=== PATIENT | male | born 1960 | race Caucasian/White ===

== ENCOUNTER → 2016-07-17 | Outpatient (CLI) | payer BC, MEDICARE ==
--- NOTE | 2016-07-17 08:58 | CT ---
EXAMINATION TYPE: CT abdomen pelvis w con DATE OF EXAM: 07/17/2016 8:50 AM COMPARISON: November 08, 2014 HISTORY: Lt groin pain and swelling CT DLP: 1111.1 mGycm CONTRAST: CT scan of the abdomen and pelvis is performed with Oral Contrast and with IV Contrast, patient injec zay with 100 mL of Omnipaque 300. FINDINGS: LUNG BASES-: No visible nodule. No infiltrate. There is a small sliding-type hiatal hernia. LIVER/GB: No calcified gallstones. 6 mm cyst left hepatic lobe. No solid hepatic lesions seen. Bili dorinda tree is of normal caliber. PANCREAS: No inflammation. No distinct mass. SPLEEN: No splenic enlargement. No lesion seen. ADRENALS: No nodule. No thickening. KIDNEYS/BLADDER: No hydronephrosis. No nephrolithiasis. No disctinct renal mass. Urinary bladder g rossly unremarkable. BOWEL: Normal appendix. Normal bowel caliber. No inflammation. GENITAL ORGANS: No gross abnormality. LYMPH NODES: No greater than 1cm abdominal or pelvic lymph nodes are appreciated. AORTA: No significant abnormality. OSSEOUS STRUCTURES: No significant abnormality is seen. OTHER: No significant additional abnormality is seen. IMPRESSION: 1. Small hiatal hernia. 2. Simple cyst hepatic lobe.
== END ==
LOC: RADCTMAIN 08:17
PROVIDERS: ATTEND Surgery
DX: K44.9 Diaphragmatic hernia without obstruction or gangrene (principal); K76.89 Other specified diseases of liver
CPT/HCPCS: 74177; Q9967

== ENCOUNTER 2016-08-22 09:41 | Day surgery (SDC) | payer BC, MEDICARE ==
[2016-08-20 14:42] VITALS: BMI 29.5
[2016-08-22] MEDS: LACTATED RINGERS 1,000 ML IV SCH ×2 (10:16→11:23)
[2016-08-22] MEDS ORDERED: LIDOCAINE 1% 20 ML VIAL (10MG/ML) FOR IV START SQ ONE (10:16)
[2016-08-22 10:25] VITALS: RESP 16; TEMP 97.3
[2016-08-22] MEDS ORDERED: PROPOFOL 10 MG/ML 20 ML VIAL IV ONE (11:24)
[2016-08-22] MEDS ORDERED: LACTATED RINGERS 1,000 ML IV ONE (11:43)
[2016-08-22 12:03] VITALS: BP 128/84; PULSE 86
--- NOTE | 2016-08-22 13:56 | P.PCN ---
Date of Procedure: 08/22/16 Preoperative Diagnosis: Postoperative Diagnosis: Procedure(s) Performed: Procedure: Colonoscopy and biopsy. Preoperative diagnosis: History of colitis. Postoperative diagnosis: Scattered areas of mild inflammation on the left side with occasional pseudopolyps consistent with quiescent colitis, pictures and multiple biopsies obtained. Preparation: HalfLytely prep. Sedation: Was provided by anesthesia. Brief clinical history: The patient is a 56-year-old male who was diagnosed with colitis in June 2014 and his course was that of steroid dependency and has been on Humira for control since March 2015. He was evaluated in the office last month and was scheduled for this this evaluation to assess for activity and guide therapy. On his last colonoscopy in June 2014 the terminal ileum and cecum were not involved and he had continuous and progressive involvement of the bowel distally. Procedure: With the patient on his left lateral decubitus position and after informed consent and adequate sedation, the perianal area was inspected and it did not show any fissures or fistulas. There were no masses felt on digital rectal examination. The Olympus CFQ 160L video colonoscope was then inserted in the rectum in the usual fashion and advanced to the cecum. I intubated the ileocecal valve and examined the terminal ileum. Terminal ileum, right colon and transverse colon appeared completely healed. On the left colon there were scattered areas of mild inflammation consisting of mucosal edema and erythema and minimal friability and small aphthous-like ulcerations with the intervening areas showing atrophic mucosa and occasional pseudopolyps. There was no spontaneous bleeding, strictures or other pathology. I retroflexed the endoscope in the rectum before the endoscope was withdrawn. I obtained multiple biopsies on the left side before the endoscope was withdrawn. The patient tolerated the procedure well. Plan: The patient was reassured. Will await pathology results and make further plans based on his course and biopsy results. Will keep you updated on his progress. Implants: Indications for Procedure: Operative Findings: Description of Procedure:
== END 2016-08-22 12:29 | disposition home or self-care (01) ==
LOC: ORWHC2ENDO 09:41
DX: K52.9 Noninfective gastroenteritis and colitis, unspecified (principal); K21.9 Gastro-esophageal reflux disease without esophagitis; M19.90 Unspecified osteoarthritis, unspecified site; Z88.8 Allergy status to other drugs, medicaments and biological substances; Z79.1 Long term (current) use of non-steroidal anti-inflammatories (NSAID); Z79.891 Long term (current) use of opiate analgesic; Z79.899 Other long term (current) drug therapy; Z86.73 Personal history of transient ischemic attack (TIA), and cerebral infarction without residual deficits; Z87.891 Personal history of nicotine dependence
CPT/HCPCS: 45380; 88305; J2704

== ENCOUNTER 2018-03-06 09:49 | Emergency (ER) | payer BC, MEDICARE ==
[2018-03-06 10:00] VITALS: TEMP 98.2
[2018-03-06] MEDS ORDERED: ONDANSETRON 4 MG/2 ML VIAL IVP STA (10:20)
[2018-03-06] MEDS ORDERED: SODIUM CHLORIDE 0.9% 2,000 ML IV STA (10:20)
[2018-03-06] MEDS ORDERED: PANTOPRAZOLE 40 MG/10 ML VIAL IVP STA (10:20)
[2018-03-06] MEDS ORDERED: MORPHINE SULFATE 4 MG/ML SYRINGE IV STA (10:20)
--- NOTE | 2018-03-06 10:29 | ED ---
Abdominal Pain HPI - General Chief Complaint: Abdominal Pain Stated Complaint: Abd Pain Time Seen by Provider: 03/06/18 10:06 Source: patient, RN notes reviewed Mode of arrival: ambulatory Limitations: no limitations - History of Present Illness Initial Comments: 57-year-old male sent emergency Department chief complaint of abdominal pain. He's had progressive worsening abdominal pain. Patient did see his GI doctor in which they initially thought it was just related to his also colitis but states symptoms have worsened now. Patient states that he noticed some coffee- ground emesis today. Patient denies any fevers or chills. Patient states that the pain is in his mid abdomen and sharp in nature. Patient also states he has known hernia in the left lower. Patient denies any melena or hematochezia. Patient denies fever, chills. Patient did have a few episodes of vomiting today. Patient denies chest pain or shortness of breath. - Related Data Home Medications Medication Instructions Recorded Confirmed Ranitidine HCl [Zantac] 150 mg PO BID 07/05/14 03/06/18 Adalimumab [Humira Pen] 40 mg SQ TU 08/20/16 03/06/18 Ibuprofen 800 mg PO TID 08/20/16 03/06/18 Methocarbamol [Robaxin-750] 750 mg PO BID PRN 08/20/16 03/06/18 Ascorbic Acid/Multivit-Min 1,000 mg PO DAILY 03/06/18 03/06/18 [Emergen-C 1,000 mg Packet] Atorvastatin [Lipitor] 40 mg PO DAILY 03/06/18 03/06/18 Dicyclomine [Bentyl] 10 mg PO TID 03/06/18 03/06/18 Lisinopril [Zestril] 10 mg PO BID 03/06/18 03/06/18 Loperamide [Imodium] 2 mg PO QID PRN 03/06/18 03/06/18 traMADol HCL [Ultram] 50 mg PO QID PRN 03/06/18 03/06/18 Previous Rx's Medication Instructions Recorded Omeprazole 40 mg PO DAILY #14 capsule. 03/06/18 Ondansetron Odt [Zofran Odt] 4 mg PO Q8HR PRN #10 tab 03/06/18 Penicillin V Potassium [Pen Vee K] 500 mg PO QID #40 tablet 03/06/18 Allergies Allergy/AdvReac Type Severity Reaction Status Date / Time methiolate Allergy Swelling Uncoded 03/06/18 10:00 STYROFOAM Allergy Swelling Uncoded 03/06/18 10:00 Review of Systems ROS Statement: Those systems with pertinent positive or pertinent negative responses have been documented in the HPI. ROS Other: All systems not noted in ROS Statement are negative. Past Medical History Past Medical History: CVA/TIA, GERD/Reflux, Osteoarthritis (OA) Additional Past Medical History / Comment(s): freq diarrhea, colitis,TIA 2012, MURMUR,ULCER,states "feels like my heart flutters sometimes" History of Any Multi-Drug Resistant Organisms: None Reported Past Surgical History: Back Surgery, Hernia Repair Additional Past Surgical History / Comment(s): back sx X4, lt inguinal hernia X 3 Past Anesthesia/Blood Transfusion Reactions: Family History of Problems w/ Anesthesia Additional Past Anesthesia/Blood Transfusion Reaction / Comment(s): sister has difficulty waking up from anesthesia Past Psychological History: No Psychological Hx Reported Smoking Status: Former smoker Past Alcohol Use History: None Reported Past Drug Use History: None Reported - Past Family History Father Family Medical History: Dementia Additional Family Medical History / Comment(s): VALVE REPLACENT, BACK SX HIP SX AFTER MOTOR CYCLE ACCIDENT.DEPRESSION. Mother Family Medical History: Hypertension, Osteoarthritis (OA) Additional Family Medical History / Comment(s): HIT BY A SEMI TRUCK CRUSHING LEG INJURY. General Exam Limitations: no limitations General appearance: alert, in no apparent distress Head exam: Present: atraumatic, normocephalic, normal inspection ENT exam: Present: mucous membranes moist. Absent: normal oropharynx (Dental fracture) Neck exam: Present: normal inspection. Absent: tenderness, meningismus, lymphadenopathy Respiratory exam: Present: normal lung sounds bilaterally. Absent: respiratory distress, wheezes, rales, rhonchi, stridor Cardiovascular Exam: Present: regular rate, normal rhythm, normal heart sounds. Absent: systolic murmur, diastolic murmur, rubs, gallop, clicks GI/Abdominal exam: Present: soft, tenderness, normal bowel sounds. Absent: distended, guarding, rebound, rigid Back exam: Absent: CVA tenderness (R), CVA tenderness (L) Skin exam: Present: warm, dry, intact, normal color. Absent: rash Course Vital Signs 03/06/18 09:57 Temperature 98.2 F Pulse Rate 85 Respiratory 20 Rate Blood Pressure 146/89 O2 Sat by Pulse 99 Oximetry Medical Decision Making - Medical Decision Making 57-year-old male presents emergency department for abdominal pain. Patient has enteritis had CT labwork essentially unremarkable. Patient will be given antiacid as he has underlying gastritis from overuse appropriately discuss discontinue use of ibuprofen this time patient will follow-up with GI as she seen in the past. Patient also given antibiotics for dental infection. - Lab Data Result diagrams: 03/06/18 10:25 03/06/18 10:25 Lab Results 03/06/18 03/06/18 03/06/18 Range/Units 10:25 10:25 10:25 WBC 13.0 H (3.8-10.6) k/uL RBC 4.71 (4.30-5.90) m/uL Hgb 14.8 (13.0-17.5) gm/dL Hct 45.3 (39.0-53.0) % MCV 96.0 (80.0-100.0) fL MCH 31.4 (25.0-35.0) pg MCHC 32.7 (31.0-37.0) g/dL RDW 12.4 (11.5-15.5) % Plt Count 333 (150-450) k/uL Neutrophils % 72 % Lymphocytes % 19 % Monocytes % 6 % Eosinophils % 1 % Basophils % 0 % Neutrophils # 9.4 H (1.3-7.7) k/uL Lymphocytes # 2.4 (1.0-4.8) k/uL Monocytes # 0.8 (0-1.0) k/uL Eosinophils # 0.1 (0-0.7) k/uL Basophils # 0.0 (0-0.2) k/uL PT (9.0-12.0) sec INR (<1.2) APTT (22.0-30.0) sec Sodium 136 L (137-145) mmol/L Potassium 4.7 (3.5-5.1) mmol/L Chloride 104 (98-107) mmol/L Carbon Dioxide 26 (22-30) mmol/L Anion Gap 6 mmol/L BUN 18 (9-20) mg/dL Creatinine 0.88 (0.66-1.25) mg/dL Est GFR (CKD-EPI)AfAm >90 (>60 ml/min/1.73 sqM) Est GFR (CKD-EPI)NonAf >90 (>60 ml/min/1.73 sqM) Glucose 111 H (74-99) mg/dL Plasma Lactic Acid [place] 1.0 (0.7-2.0) mmol/L Calcium 9.3 (8.4-10.2) mg/dL Total Bilirubin 0.6 (0.2-1.3) mg/dL AST 29 (17-59) U/L ALT 31 (21-72) U/L Alkaline Phosphatase 66 (38-126) U/L Total Protein 7.3 (6.3-8.2) g/dL Albumin 4.0 (3.5-5.0) g/dL Amylase 61 (30-110) U/L Lipase 44 (23-300) U/L Urine Color Urine Appearance (Clear) Urine pH (5.0-8.0) Ur Specific [place] (1.001-1.035) Urine Protein (Negative) Urine Glucose (UA) (Negative) Urine Ketones (Negative) Urine Blood (Negative) Urine Nitrite (Negative) Urine Bilirubin (Negative) Urine Urobilinogen (<2.0) mg/dL Ur Leukocyte Esterase (Negative) 03/06/18 03/06/18 Range/Units 10:25 10:25 WBC (3.8-10.6) k/uL RBC (4.30-5.90) m/uL Hgb (13.0-17.5) gm/dL Hct (39.0-53.0) % MCV (80.0-100.0) fL MCH (25.0-35.0) pg MCHC (31.0-37.0) g/dL RDW (11.5-15.5) % Plt Count (150-450) k/uL Neutrophils % % Lymphocytes % % Monocytes % % Eosinophils % % Basophils % % Neutrophils # (1.3-7.7) k/uL Lymphocytes # (1.0-4.8) k/uL Monocytes # (0-1.0) k/uL Eosinophils # (0-0.7) k/uL Basophils # (0-0.2) k/uL PT 9.5 (9.0-12.0) sec INR 0.9 (<1.2) APTT 22.3 (22.0-30.0) sec Sodium (137-145) mmol/L Potassium (3.5-5.1) mmol/L Chloride (98-107) mmol/L Carbon Dioxide (22-30) mmol/L Anion Gap mmol/L BUN (9-20) mg/dL Creatinine (0.66-1.25) mg/dL Est GFR (CKD-EPI)AfAm (>60 ml/min/1.73 sqM) Est GFR (CKD-EPI)NonAf (>60 ml/min/1.73 sqM) Glucose (74-99) mg/dL Plasma Lactic Acid [place] (0.7-2.0) mmol/L Calcium (8.4-10.2) mg/dL Total Bilirubin (0.2-1.3) mg/dL AST (17-59) U/L ALT (21-72) U/L Alkaline Phosphatase (38-126) U/L Total Protein (6.3-8.2) g/dL Albumin (3.5-5.0) g/dL Amylase (30-110) U/L Lipase (23-300) U/L Urine Color Yellow Urine Appearance Clear (Clear) Urine pH 6.0 (5.0-8.0) Ur Specific [place] 1.011 (1.001-1.035) Urine Protein Negative (Negative) Urine Glucose (UA) Negative (Negative) Urine Ketones Negative (Negative) Urine Blood Negative (Negative) Urine Nitrite Negative (Negative) Urine Bilirubin Negative (Negative) Urine Urobilinogen <2.0 (<2.0) mg/dL Ur Leukocyte Esterase Negative (Negative) Disposition Clinical Impression: Gastritis, Enteritis, Nausea & vomiting, Dental infection Disposition: HOME SELF-CARE Condition: Stable Instructions: Gastritis (ED), Diet for Stomach Ulcers and Gastritis (ED) Additional Instructions: Please return to the Emergency Department if symptoms worsen or any other concerns. Prescriptions: Omeprazole 40 mg PO DAILY #14 capsule. Ondansetron Odt [Zofran Odt] 4 mg PO Q8HR PRN #10 tab PRN Reason: Nausea Penicillin V Potassium [Pen Vee K] 500 mg PO QID #40 tablet Is patient prescribed a controlled substance at d/c from ED?: No Referrals: Bailey Noel MD [Primary Care Provider] - 1-2 days Time of Disposition: 12:29
[2018-03-06 10:50] LABS: Appearance,Urine Clear (Clear); Bilirubin,Urine Negative (Negative); Blood,Urine Negative (Negative); Color,Urine Yellow; Glucose,Urine (UA) Negative (Negative); Ketones,Urine Negative (Negative); Leukocyte Esterase,Urine Negative (Negative); Nitrite,Urine Negative (Negative); Protein,Urine Negative (Negative); Specific Gravity,Urine 1.011 (1.001-1.035); Urobilinogen,Urine <2.0 mg/dL (<2.0)
[2018-03-06 10:51] LABS: Basophils % (A) 0 %; Eosinophils # (A) 0.1 k/uL (0-0.7); Eosinophils % (A) 1 %; HCT 45.3 % (39.0-53.0); HGB 14.8 gm/dL (13.0-17.5); Lymphocytes # (A) 2.4 k/uL (1.0-4.8); Lymphocytes % (A) 19 %; MCH 31.4 pg (25.0-35.0); MCHC 32.7 g/dL (31.0-37.0); Mean Platelet Volume 6.4; Monocytes # (A) 0.8 k/uL (0-1.0); Monocytes % (A) 6 %; Neutrophils # (A) 9.4 k/uL (1.3-7.7); Neutrophils % (A) 72 %; Platelet Count 333 k/uL (150-450); RBC 4.71 m/uL (4.30-5.90); RDW 12.4 % (11.5-15.5)
[2018-03-06 11:00] LABS: ALT 31 U/L (21-72); AST 29 U/L (17-59); Alkaline Phosphatase 66 U/L (38-126); Amylase 61 U/L (30-110); Anion Gap 6 mmol/L; Blood Urea Nitrogen 18 mg/dL (9-20); Calcium 9.3 mg/dL (8.4-10.2); Carbon Dioxide 26 mmol/L (22-30); Chloride 104 mmol/L (98-107); Glucose 111 mg/dL (74-99); INR 0.9 (<1.2); Lipase 44 U/L (23-300); Partial Thromboplastin Time 22.3 sec (22.0-30.0); Potassium 4.7 mmol/L (3.5-5.1); Prothrombin Time 9.5 sec (9.0-12.0); Sodium 136 mmol/L (137-145); Total Bilirubin 0.6 mg/dL (0.2-1.3); Total Protein 7.3 g/dL (6.3-8.2)
--- NOTE | 2018-03-06 11:49 | CT ---
EXAMINATION TYPE: CT abdomen pelvis w con DATE OF EXAM: 03/06/2018 COMPARISON: 07/17/2016 HISTORY: Upper abdominal pain, history of ulcerative colitis CT DLP: 910.9 mGycm CONTRAST: CT scan of the abdomen and pelvis is performed without Oral Contrast and with IV Contrast, patient in jected with 100 mL of Isovue 300. FINDINGS: LUNG BASES-: No visible nodule. No infiltrate. LIVER/GB: No calcified gallstones. 4 mm cyst left hepatic lobe. Biliary tree is of normal caliber. PANCREAS: No inflammation. No distinct mass. SPLEEN: No splenic enlargement. No lesion seen. ADRENALS: No nodule. No thickening. KIDNEYS/BLADDER: No hydronephrosis. No nephrolithiasis. No distinct renal mass. Urinary bladder g rossly unremarkable. BOWEL: Normal appendix. Mild wall thickening and distention of jejunal loops may reflect enteritis. P oorly distended left hemicolon. No evidence of perforation or abscess. Small sliding-type hiatal dinora ia noted. GENITAL ORGANS: No gross abnormality. LYMPH NODES: No greater than 1cm abdominal or pelvic lymph nodes are appreciated. AORTA: No significant abnormality. OSSEOUS STRUCTURES: No significant abnormality is seen. OTHER: No significant additional abnormality is seen. IMPRESSION: 1. Correlate for small bowel enteritis.
[2018-03-06 12:48] VITALS: BP 140/72; PULSE 70; RESP 18
== END 2018-03-06 12:49 | disposition home or self-care (01) ==
LOC: EC 09:49
DX: K29.70 Gastritis, unspecified, without bleeding (principal); K52.9 Noninfective gastroenteritis and colitis, unspecified; K04.7 Periapical abscess without sinus; K21.9 Gastro-esophageal reflux disease without esophagitis; M19.90 Unspecified osteoarthritis, unspecified site; Z86.73 Personal history of transient ischemic attack (TIA), and cerebral infarction without residual deficits; Z87.891 Personal history of nicotine dependence; Z79.1 Long term (current) use of non-steroidal anti-inflammatories (NSAID); Z79.899 Other long term (current) drug therapy; Z88.8 Allergy status to other drugs, medicaments and biological substances; Z91.09 Other allergy status, other than to drugs and biological substances
CPT/HCPCS: 36415; 80053; 82150; 83605; 83690; 85025; 85610; 85730; 81003; 74177; 99284; 96374; 96375 ×2; 96361 ×2; J2270; J2405; C9113; Q9967

== ENCOUNTER → 2018-11-20 | Outpatient (CLI) | payer BC, MEDICARE ==
--- NOTE | 2018-11-20 11:02 | US ---
EXAMINATION TYPE: US thyroid st tissue head/neck DATE OF EXAM: 11/20/2018 COMPARISON: NONE CLINICAL HISTORY: R22.1 swelling of head and neck. Neck swelling, difficulty breathing and swallowing x 3 to 4 months GLAND SIZE: Right Lobe: 5.6 x 1.3 x 1.9 cm Overall Parenchyma: heterogenous Left Lobe: 5.8 x 1.5 x 1.7 cm Overall Parenchyma: heterogeneous Isthmus Thickness: 0.5 cm NODULES RIGHT: # of nodules measured on right: 0 LEFT: # of nodules measured on left: 0 ISTHMUS: # of nodules measured in the isthmus: 0 Bilateral neck scanned, no evidence of lymphadenopathy. Enlarged heterogeneous thyroid without any definite nodules seen at this time. IMPRESSION: Enlarged and slightly heterogenous thyroid with no discrete nodule. Thyroiditis should be considered. Correlate with laboratory values.
== END ==
LOC: RADUSWWP 09:56
PROVIDERS: ATTEND Family Medicine
DX: E04.9 Nontoxic goiter, unspecified (principal)
CPT/HCPCS: 76536

== ENCOUNTER 2018-12-03 09:55 | Day surgery (SDC) | payer BC, MEDICARE ==
[2018-12-01 14:58] VITALS: BMI 27.5
[~2018-12-03 09:55] MED LIST: LACTATED RINGERS 1,000 ML IV SCH; LIDOCAINE 1% 20 ML VIAL (10MG/ML) FOR IV START INTRADERMA PRN
[2018-12-03 10:21] VITALS: TEMP 97.8
[2018-12-03 10:34] LABS: Glucose,Whole Blood 117 mg/dL (75-99)
[2018-12-03] MEDS ORDERED: PROPOFOL 10 MG/ML 20 ML VIAL IV ONE (10:53)
[2018-12-03] MEDS ORDERED: LIDOCAINE 1% INJ 10MG/ML (20 ML MDV) ONE (10:53)
[2018-12-03 11:30] VITALS: RESP 18
--- NOTE | 2018-12-03 11:33 | P.PCN ---
Date of Procedure: 12/03/18 Description of Procedure: BRIEF HISTORY: Patient is a 58-year-old pleasant male scheduled for an elective colonoscopy as a part of surveillance of ulcerative colitis. Patient was diagnosed in the and has a long-standing history of ulcerative colitis of this will colon. Currently on treatment with Humira since 2016 is also on dulls occult therapy. He is been tapering off steroids and is currently on 20 mg of prednisone daily. Last colonoscopy was over 08/2016. PROCEDURE PERFORMED: Colonoscopy. PREOPERATIVE DIAGNOSIS: []. ESTIMATED BLOOD LOSS: Minimal. IV sedation per Anesthesia. PROCEDURE: After informed consent was obtained, the patient, was brought into the endoscopy unit. IV sedation was administered by Anesthesia under continuous monitoring. Digital rectal examination was normal. Initially the Olympus CF-190 flexible video colonoscope was then inserted in the rectum, gradually advanced into the cecum without any difficulty. Careful examination was performed as the scope was gradually being withdrawn. Ileocecal valve and the appendiceal orifice were visualized and appeared normal. The terminal ileum was intubated and appeared normal. Prep was excellent. Mucosa of the cecum, ascending colon, transverse colon, appeared grossly normal. Mucosa of the descending colon, sigmoid colon, and rectum appeared mottled with some scattered erythema and loss of haustrations consistent with history of ulcerative colitis. Biopsies were taken every 10 cm from 80 cm from the anal verge. Retroflexion was performed in the rectum and no lesions were seen, moderate internal. The patient tolerated the procedure well. IMPRESSION: Some mottling and erythema in the left colon suggestive of mildly active ulcerative colitis with biopsies taken every 10 cm starting at 80 cm from the anal verge. Moderate internal hemorrhoids. RECOMMENDATIONS: Findings of this examination were discussed with the patient and his . Continue current medical management ulcerative colitis. Await pathology from biopsies. Follow up in the gastroenterology clinic as previously scheduled. Repeat colonoscopy in 2 years as previously scheduled.
[2018-12-03 11:46] VITALS: BP 167/89; PULSE 78
== END 2018-12-03 12:07 | disposition home or self-care (01) ==
LOC: ORWHC2ENDO 09:55
PROVIDERS: ATTEND Internal Medicine
DX: K51.90 Ulcerative colitis, unspecified, without complications (principal); K64.8 Other hemorrhoids; Z79.891 Long term (current) use of opiate analgesic; Z79.52 Long term (current) use of systemic steroids; Z79.899 Other long term (current) drug therapy; Z87.891 Personal history of nicotine dependence; I10 Essential (primary) hypertension; R01.1 Cardiac murmur, unspecified; R00.2 Palpitations; Z86.73 Personal history of transient ischemic attack (TIA), and cerebral infarction without residual deficits; M19.90 Unspecified osteoarthritis, unspecified site; K21.9 Gastro-esophageal reflux disease without esophagitis; Z88.8 Allergy status to other drugs, medicaments and biological substances; Z91.09 Other allergy status, other than to drugs and biological substances
CPT/HCPCS: 88305; 88313; 45380; J2001; J2704

== ENCOUNTER → 2019-04-23 | Outpatient (CLI) | payer BC, MEDICARE ==
[2019-04-26 14:43] LABS: Beef IgE <0.10 kU/L (<0.10); Beef IgE Class CLASS 0; Pork IgE Class CLASS 0; Yeast Bakers/Brew IgE <0.10 kU/L (<0.10); Yeast Bakers/Brew IgE Class CLASS 0
[2019-04-26 14:44] LABS: Avocado Class CLASS 0; Banana IgE Class CLASS 0; Chicken IgE Class CLASS 0; Cow's Milk IgE Class CLASS 0; Egg White IgE <0.10 kU/L (<0.10); Hazelnut IgE <0.10 kU/L (<0.10); Hazelnut IgE Class CLASS 0; Kiwi IgE <0.10 kU/L (<0.10); Kiwi IgE Class CLASS 0; Peanut IgE <0.10 kU/L (<0.10); Potato IgE <0.10 kU/L (<0.10); Potato IgE Class CLASS 0; Soybean IgE <0.10 kU/L (<0.10)
== END | disposition home or self-care (01) ==
LOC: LABWHC1 11:44
PROVIDERS: ATTEND Otolaryngology
DX: L50.0 Allergic urticaria (principal)
CPT/HCPCS: 36415; 86003

== ENCOUNTER → 2019-07-29 | Outpatient (CLI) | payer BC, MEDICARE ==
--- NOTE | 2019-07-29 13:15 | XR ---
EXAMINATION TYPE: XR chest 2V DATE OF EXAM: 07/29/2019 COMPARISON: NONE HISTORY: Left-sided chest pain with cough. TECHNIQUE: Frontal and lateral views of the chest are obtained. FINDINGS: There is chronic parenchymal changes bilaterally without suspicious focal air space opacit y, pleural effusion, or pneumothorax seen. The cardiac silhouette size is within normal limits. Th e osseous structures are intact. IMPRESSION: Chronic changes without acute pulmonary process.
== END | disposition home or self-care (01) ==
LOC: RADXRYALE 11:35
PROVIDERS: ATTEND Physician Assistant Medical
DX: R07.89 Other chest pain (principal)
CPT/HCPCS: 71046

== ENCOUNTER → 2020-01-04 | Outpatient (CLI) | payer BC, MEDICARE ==
--- NOTE | 2020-01-04 12:59 | CT ---
EXAMINATION TYPE: CT brain wo con DATE OF EXAM: 01/04/2020 HISTORY: Dizziness and giddiness. CT DLP: 1219 mGycm. Automated Exposure Control for Dose Reduction was Utilized. TECHNIQUE: CT scan of the head is performed without contrast. COMPARISON: None. FINDINGS: There is no acute intracranial hemorrhage or midline shift identified. There is diffuse v entricular and sulcal prominence consistent with diffuse age-related cerebral atrophy. There is low- attenuation in the periventricular white matter consistent with chronic small vessel ischemic change. Moderate mucosal thickening involving ethmoid sinuses bilaterally. Mild mucosal thickening inferio r bilateral frontal sinuses in the anterior left sphenoid sinus. [id number] mucosal thickening left greater than right maxillary sinuses. Globes are intact bilaterally. No suspicious opacification mastoid air cells. IMPRESSION: No acute intracranial hemorrhage or midline shift. There is mild diffuse age-related ce rebral atrophy and chronic small vessel ischemic change noted. Chronic paranasal sinus disease noted .
--- NOTE | 2020-01-10 08:18 | HM ---
Holter monitor summary: Date of Holter: 01/04/2020 Patient wore a 24-hour Holter monitor starting 01/04/2020 for a total of 24 hours. Patient had an average heart rate of 79 bpm. Patient's minimum heart rate was 51 bpm at 7:06 AM. Patient's maximum heart rate was 131 bpm at 11:47 AM. Patient had rare PVCs. No significant atrial fibrillation, ventricular tachycardia or bradycardias noted. Interpretation: 1. Normal sinus rhythm throughout 24-hour Holter monitor 2. Rare PACs. No pauses greater than 2.5 seconds 3. Rare PVCs noted 4. Patient markers are associated with sinus rhythm 5. No significant atrial fibrillation, SVT or tachyarrhythmias MTDD
== END | disposition home or self-care (01) ==
LOC: RADECHMAIN 12:10
PROVIDERS: ATTEND Family Medicine
DX: G31.1 Senile degeneration of brain, not elsewhere classified (principal); I67.82 Cerebral ischemia; R42 Dizziness and giddiness; R55 Syncope and collapse
CPT/HCPCS: 70450; 93225; 93226

== ENCOUNTER 2020-02-23 13:56 | Emergency (ER) | payer BC, MEDICARE ==
[2020-02-23 14:01] VITALS: TEMP 98.2
[2020-02-23] MEDS ORDERED: DIPH,PERTUS(ACELL)TETVAC-LF 0.5 ML VIAL IM ONE (15:12)
[2020-02-23] MEDS ORDERED: TOPICAL SKIN ADHESIVE 1 EACH AMP TOPICAL ONE (15:14)
--- NOTE | 2020-02-23 15:14 | ED ---
General Adult HPI - General Chief complaint: Fall Stated complaint: Fall Time Seen by Provider: 02/23/20 14:57 Source: patient Mode of arrival: wheelchair Limitations: no limitations - History of Present Illness Initial comments: Dictation was produced using Beaming dictation software. please excuse any grammatical, word or spelling errors. This patient was cared for during a federal and state declared state of emergency secondary to Covid 19 Chief Complaint: 59-year-old male with past medical history of remote illicit drug use, GERD, osteoporosis arthritis and CVA presents after fall. 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 Patient states the ladder fell out from under him. He states he fell backwards landing onto his lower back straight to the ground. States that he fell from a height of approximately 8 feet. Patient does not recall if he struck his head or loss consciousness. Does complain of back pain, neck pain and left lower extremity pain. Denies any radiation of symptoms. States his pain is severe and worse with movement. Patient denies taking any anticoagulation medications. He does not have a headache. The ROS documented in this emergency department record has been reviewed and confirmed by me. Those systems with pertinent positive or negative responses have been documented in the HPI. All other systems are other negative and/or noncontributory. PHYSICAL EXAM: General Impression: Alert and oriented x3, not in acute distress HEENT: Normocephalic atraumatic, extra-ocular movements intact, pupils equal and reactive to light bilaterally, mucous membranes moist. Cardiovascular: Heart regular rate and rhythm Chest: Able to complete full sentences, no retractions, no tachypnea Abdomen: abdomen soft, non-tender, non-distended, no organomegaly Musculoskeletal: Pulses present and equal in all extremities, no peripheral edema, no cervical spine tenderness, abrasions to the left lower extremity at th e anterior tibial area, left anterior knee and left lateral thigh Motor: no focal deficits noted Neurological: CN II-XII grossly intact, no focal motor or sensory deficits noted Skin: Intact with no visualized rashes Psych: Normal affect and mood ED course: 59-year-old male presents with back pain, neck pain and left lower extremity pain after fall from ladder 8 feet. Vital signs upon arrival are within acceptable limits. Patient was offered analgesic medications however he refused. He states that this is because he is weaning himself off narcotics.Laboratory evaluation is unremarkable. Potassium 5.2 likely some slight hemolysis. Chest x-ray unremarkable. Pelvis x-rays unremarkable. The x-ray is negative. Tib-fib x-ray unremarkable. CT head and C-spine is unremarkable. CT neck shows no acute processes. Patient reevaluated bedside found with stable medical condition. Tetanus was updated. Patient notified of the results of his blood work and imaging studies. Patient is agreeable to Toradol. Patient clear for discharge. Return parameters discussed. EKG interpretation: Ventricular rate 88, sinus bradycardia, GA interval 162, QRS 102, QTC 420. No GA prolongation, no QTC prolongation, no ST or T-wave changes noted. EKG compared to 11/08/2014 showing no changes. Overall, this EKG is unremarkable - Related Data Home Medications Medication Instructions Recorded Confirmed Ranitidine HCl [Zantac] 150 mg PO BID 07/05/14 12/03/18 Adalimumab [Humira Pen] 40 mg SQ TU 08/20/16 12/03/18 Ibuprofen 800 mg PO TID 08/20/16 12/03/18 Ascorbic Acid/Multivit-Min 1,000 mg PO DAILY 03/06/18 12/03/18 [Emergen-C 1,000 mg Packet] Atorvastatin [Lipitor] 40 mg PO DAILY 03/06/18 12/03/18 Dicyclomine [Bentyl] 10 mg PO TID 03/06/18 12/03/18 Lisinopril [Zestril] 10 mg PO BID 03/06/18 12/03/18 Loperamide [Imodium] 2 mg PO DAILY 03/06/18 12/03/18 traMADol HCL [Ultram] 50 mg PO QID PRN 03/06/18 12/03/18 Nystatin 100,000 Unit/ml Susp 1 ml PO QID 12/01/18 12/03/18 [Mycostatin Oral Susp] methocarbamoL [Robaxin] 500 mg PO DAILY 12/01/18 12/03/18 predniSONE 10 mg PO BID 12/01/18 12/03/18 Allergies Allergy/AdvReac Type Severity Reaction Status Date / Time methiolate Allergy Swelling Uncoded 02/23/20 14:01 STYROFOAM Allergy Swelling Uncoded 02/23/20 14:01 Review of Systems ROS Statement: Those systems with pertinent positive or pertinent negative responses have been documented in the HPI. ROS Other: All systems not noted in ROS Statement are negative. Past Medical History Past Medical History: CVA/TIA, GERD/Reflux, Osteoarthritis (OA) Additional Past Medical History / Comment(s): freq diarrhea, colitis,TIA 2012,MURMUR,ULCER,states "feels like my heart flutters sometimes" History of Any Multi-Drug Resistant Organisms: None Reported Past Surgical History: Back Surgery, Hernia Repair Additional Past Surgical History / Comment(s): back sx X4, lt inguinal hernia X 3 Past Anesthesia/Blood Transfusion Reactions: Family History of Problems w/ Anesthesia Additional Past Anesthesia/Blood Transfusion Reaction / Comment(s): sister has difficulty waking up from anesthesia Past Psychological History: No Psychological Hx Reported Smoking Status: Never smoker Past Alcohol Use History: None Reported Past Drug Use History: Marijuana - Past Family History Sister(s) Family Medical History: Cancer Additional Family Medical History / Comment(s): BREAST CANCER Father Family Medical History: Dementia Additional Family Medical History / Comment(s): VALVE REPLACEMENT, BACK SX HIP SX AFTER MOTOR CYCLE ACCIDENT.DEPRESSION. Mother Family Medical History: Hypertension, Osteoarthritis (OA) Additional Family Medical History / Comment(s): HIT BY A SEMI TRUCK CRUSHING LEG INJURY. General Exam Limitations: no limitations Course Vital Signs 02/23/20 13:57 Temperature 98.2 F Pulse Rate 69 Respiratory 18 Rate Blood Pressure 163/94 O2 Sat by Pulse 98 Oximetry Medical Decision Making - Lab Data Result diagrams: 02/23/20 15:30 02/23/20 15:30 Lab Results 02/23/20 02/23/20 Range/Units 15:30 15:30 WBC 10.2 (3.8-10.6) k/uL RBC 4.76 (4.30-5.90) m/uL Hgb 15.3 (13.0-17.5) gm/dL Hct 45.3 (39.0-53.0) % MCV 95.1 (80.0-100.0) fL MCH 32.1 (25.0-35.0) pg MCHC 33.7 (31.0-37.0) g/dL RDW 12.1 (11.5-15.5) % Plt Count 364 (150-450) k/uL MPV 6.6 Neutrophils % 55 % Lymphocytes % 30 % Monocytes % 8 % Eosinophils % 2 % Basophils % 3 % Neutrophils # 5.6 (1.3-7.7) k/uL Lymphocytes # 3.0 (1.0-4.8) k/uL Monocytes # 0.8 (0-1.0) k/uL Eosinophils # 0.2 (0-0.7) k/uL Basophils # 0.3 H (0-0.2) k/uL Sodium 139 (137-145) mmol/L Potassium 5.2 H (3.5-5.1) mmol/L Chloride 105 (98-107) mmol/L Carbon Dioxide 29 (22-30) mmol/L Anion Gap 5 mmol/L BUN 20 (9-20) mg/dL Creatinine 0.97 (0.66-1.25) mg/dL Est GFR (CKD-EPI)AfAm >90 (>60 ml/min/1.73 sqM) Est GFR (CKD-EPI)NonAf 87 (>60 ml/min/1.73 sqM) Glucose 95 (74-99) mg/dL Calcium 9.6 (8.4-10.2) mg/dL Total Bilirubin 0.5 (0.2-1.3) mg/dL AST 37 (17-59) U/L ALT 33 (4-49) U/L Alkaline Phosphatase 74 (38-126) U/L Total Protein 7.8 (6.3-8.2) g/dL Albumin 4.5 (3.5-5.0) g/dL Disposition Clinical Impression: Fall Disposition: HOME SELF-CARE Condition: Fair Instructions (If sedation given, give patient instructions): Fall Prevention for Older Adults (ED), Low Back Strain (ED) Is patient prescribed a controlled substance at d/c from ED?: No Referrals: Skip Stratton DO [Primary Care Provider] - 1-2 days Time of Disposition: 17:14
[2020-02-23 15:49] LABS: Basophils # (A) 0.3 k/uL (0-0.2); Basophils % (A) 3 %; Eosinophils # (A) 0.2 k/uL (0-0.7); Eosinophils % (A) 2 %; HCT 45.3 % (39.0-53.0); HGB 15.3 gm/dL (13.0-17.5); Lymphocytes % (A) 30 %; MCH 32.1 pg (25.0-35.0); MCHC 33.7 g/dL (31.0-37.0); MCV 95.1 fL (80.0-100.0); Mean Platelet Volume 6.6; Monocytes # (A) 0.8 k/uL (0-1.0); Monocytes % (A) 8 %; Neutrophils # (A) 5.6 k/uL (1.3-7.7); Neutrophils % (A) 55 %; Platelet Count 364 k/uL (150-450); RBC 4.76 m/uL (4.30-5.90); RDW 12.1 % (11.5-15.5); WBC 10.2 k/uL (3.8-10.6)
--- NOTE | 2020-02-23 15:58 | XR ---
EXAMINATION TYPE: XR chest 2V DATE OF EXAM: 02/23/2020 COMPARISON: Prior chest x-ray 07/29/2019 HISTORY: Trauma, pain TECHNIQUE: Frontal and lateral views of the chest are obtained on 3 images. FINDINGS: There is no focal air space opacity, pleural effusion, or pneumothorax seen. The cardiac silhouette size is within normal limits. There are prominent lung volumes possibly indicating underly ing COPD. The osseous structures are intact. IMPRESSION: No acute cardiopulmonary process.
--- NOTE | 2020-02-23 16:11 | XR ---
EXAMINATION TYPE: XR pelvis AP view DATE OF EXAM: 02/23/2020 COMPARISON: The HISTORY: Fall, pain TECHNIQUE: AP pelvis FINDINGS: Femoral heads articulate with the acetabulum. Symphysis pubis and sacroiliac joints are nor mal. Normal bowel gas is present. No acute fractures or dislocations are evident. Joints appear mickie l IMPRESSION: 1. No acute osseous abnormality.
--- NOTE | 2020-02-23 16:15 | XR ---
EXAMINATION TYPE: XR knee complete LT DATE OF EXAM: 02/23/2020 COMPARISON: 03/04/2020 HISTORY: Fall, pain TECHNIQUE: Three-view left knee FINDINGS: Joint spaces preserved. No acute fracture or dislocation is evident. No joint effusion is e vident. Follow-up exams can be performed 7-10 days from acute trauma for continued pain IMPRESSION: 1. Normal three-view left knee
--- NOTE | 2020-02-23 16:16 | XR ---
EXAMINATION TYPE: XR tibia fibula LT DATE OF EXAM: 02/23/2020 COMPARISON: None HISTORY: Fall, pain fall from 8 foot ladder TECHNIQUE: 2 view left tibia and fibula FINDINGS: No acute fractures or dislocations are evident. Joint spaces appear preserved. No radiopaqu e foreign bodies are evident. Soft tissues appear normal. Follow-up exams can be performed 7-10 days from acute trauma for continued pain. IMPRESSION: 1. Left tibia and fibula.
[2020-02-23 16:19] LABS: ALT 33 U/L (4-49); AST 37 U/L (17-59); African American GFR (CKD) >90 (>60 ml/min/1.73 sqM); Albumin 4.5 g/dL (3.5-5.0); Alkaline Phosphatase 74 U/L (38-126); Anion Gap 5 mmol/L; Blood Urea Nitrogen 20 mg/dL (9-20); Calcium 9.6 mg/dL (8.4-10.2); Carbon Dioxide 29 mmol/L (22-30); Chloride 105 mmol/L (98-107); Glucose 95 mg/dL (74-99); Non-African American GFR(CKD) 87 (>60 ml/min/1.73 sqM); Potassium 5.2 mmol/L (3.5-5.1); Sodium 139 mmol/L (137-145); Total Bilirubin 0.5 mg/dL (0.2-1.3); Total Protein 7.8 g/dL (6.3-8.2)
--- NOTE | 2020-02-23 16:44 | CT ---
EXAMINATION TYPE: CT brain sydnie blair con DATE OF EXAM: 02/23/2020 COMPARISON: 01/04/2020 HISTORY: low back pain post 8 ft fall from ladder CT DLP: 1496.5 mGycm, Automated exposure control for dose reduction was used. CONTRAST: None CT of the brain is performed utilizing 3 mm thick sections through the posterior fossa and 3 mm thick sections through the remaining calvarium. Study is performed within 24 hours of arrival to the hospital. No abnormal hyperdensity is present to suggest an acute intracranial hemorrhage. No mass lesion is evident. No acute infarcts are evident. Ventricles and sulci are appropriate for the patient age. Mucosal thickening is within the left maxillary sinus. A left septal spur is present. Ethmoid mucosal thickenings present bilaterally. Small amount of mucosal thickening or retention cysts within the sp henoid sinus. Mastoid air cells are clear. IMPRESSIONS: 1. No acute intracranial process. 2. Chronic sinusitis CT cervical spine. COMPARISON: None CT of the cervical spine is performed in the axial plane at 2 mm thick sections. Reconstructed image s in the coronal, and sagittal plane are reviewed on the computer. No acute fractures are evident. Vertebral body alignment is normal. Disc space narrowing is present diffusely. Vertebral body heights are preserved. No spinal canal stenosis is evident. Uncovertebral joint hypertrophy is contributing to moderate left and severe right foraminal stenosis C3-4. Moderate foraminal narrowing is present C4-5 bilaterally and C5-6 bilaterally and mild to moder ate left foraminal stenosis is present at C6-7. IMPRESSIONS: 1. Degenerative disc changes. 2. Uncovertebral joint hypertrophy contributing to foraminal narrowing. 3. No acute fractures evident
--- NOTE | 2020-02-23 16:47 | CT ---
EXAMINATION TYPE: CT lumbar spine wo con DATE OF EXAM: 02/23/2020 COMPARISON: None HISTORY: low back pain post 8 ft fall from ladder CT DLP: 1160.6 mGycm CONTRAST: None TECHNIQUE: CT of the lumbar spine is performed on a spiral scan at 3 mm thick sections. Reconstructed images are performed in the coronal and sagittal planes. FINDINGS: There is a retrolisthesis of L4 posterior L5. Vertebral body alignment is otherwise unremarkable. [place] tebral body heights are preserved. There is disc height loss at L4-5. Some posterior disc space narro wing is present through the remaining lumbar spine. No acute fractures are evident. No spinal canal stenosis is present. Broad-based disc bulge is present L3-4 with mild anterior thecal sac compression. IMPRESSION: 1. Degenerative disc changes. 2. Retrolisthesis of L4 posterior L5. 3. No acute osseous abnormality
[2020-02-23] MEDS ORDERED: KETOROLAC 15 MG/ML 1 ML VIAL IM STA (17:13)
[2020-02-23 17:33] VITALS: BP 154/97; PULSE 57; RESP 16
== END 2020-02-23 17:36 | disposition home or self-care (01) ==
LOC: EC 13:56
DX: S80.812A Abrasion, left lower leg, initial encounter (principal); K21.9 Gastro-esophageal reflux disease without esophagitis; M19.90 Unspecified osteoarthritis, unspecified site; R00.1 Bradycardia, unspecified; M54.9 Dorsalgia, unspecified; M54.2 Cervicalgia; Z79.51 Long term (current) use of inhaled steroids; Z79.899 Other long term (current) drug therapy; Z79.1 Long term (current) use of non-steroidal anti-inflammatories (NSAID); Z88.3 Allergy status to other anti-infective agents; Z91.048 Other nonmedicinal substance allergy status; Z86.73 Personal history of transient ischemic attack (TIA), and cerebral infarction without residual deficits; Z23 Encounter for immunization; W11.XXXA Fall on and from ladder, initial encounter; Y93.39 Activity, other involving climbing, rappelling and jumping off; Y92.009 Unspecified place in unspecified non-institutional (private) residence as the place of occurrence of the external cause
CPT/HCPCS: 36415; 93005; 80053; 85025; 72170; 73590; 73562; 71046; 72125; 72131; 70450; 90715; 99284; 90471; 96372; J1885

== ENCOUNTER → 2020-04-12 | Outpatient (CLI) | payer BC, MEDICARE ==
--- NOTE | 2020-04-12 10:50 | MR ---
EXAMINATION TYPE: MR iac wo/w con DATE OF EXAM: 04/12/2020 COMPARISON: CT brain February 23, 2020 HISTORY: Acoustic nerve disorder, vertigo, black out TECHNIQUE: Multiplanar, multisequence images of the brain and brainstem is performed without and with IV contras t, utilizing 10 mL intravenous Gadavist . Acoustic nerve disorder protocol. FINDINGS: Diffusion weighted images demonstrate no evidence of a recent infarct or other diffusion ab normality. There is no extra-axial fluid collection or significant white matter signal abnormality. Mild ventricular and sulcal prominence. Midline structures demonstrate normal morphology. The craniocervical junction appears within normal limits. Normal vascular flow voids. The dural venous sinuses appear patent. [id number] mucosal thickening involving the maxillary sinuses bilaterally left greater than right is redemonstrated. The re is mild to moderate mucosal thickening involving ethmoid sinuses bilaterally redemonstrated along with inferior aspect of bilateral frontal sinuses with some patchy fluid. There is posterior mucous r etention cyst or polyp in the dominant sphenoid sinus. Globes are intact bilaterally. No suspicious fluid signal in the mastoid air cells bilaterally. Vestibulocochlear complexes are symm etric and felt within normal limits. No suspicious enhancing cerebellopontine angle mass is identifie d bilaterally. IMPRESSION: No suspicious finding is seen to account for patient's symptoms of vertigo. Chronic paran sue sinus disease redemonstrated. Mild diffuse age-related cerebral atrophy redemonstrated.
== END | disposition home or self-care (01) ==
LOC: RADMRIMAIN 07:59
PROVIDERS: ATTEND Otolaryngology
DX: G31.1 Senile degeneration of brain, not elsewhere classified (principal); J32.9 Chronic sinusitis, unspecified
CPT/HCPCS: 70553; A9585

== ENCOUNTER → 2020-04-12 | Outpatient (CLI) | payer BC, MEDICARE ==
--- NOTE | 2020-04-12 15:39 | US ---
EXAMINATION TYPE: US carotid duplex BILAT DATE OF EXAM: 04/12/2020 COMPARISON: MRI head today CLINICAL HISTORY: R42 vertigo; syncopal episodes and cardiac murmur per patient EXAM MEASUREMENTS: RIGHT: Peak Systolic Velocity (PSV) cm/sec ----- Right CCA: 47.6 ----- Right ICA: 86.4 ----- Right ECA: 143.1 ICA/CCA ratio: 1.8 RIGHT: End Diastole cm/sec ----- Right CCA: 11.9 ----- Right ICA: 33.6 ----- Right ECA: 12.3 LEFT: Peak Systolic Velocity (PSV) cm/sec ----- Left CCA: 52.0 ----- Left ICA: 93.5 ----- Left ECA: 133.4 ICA/CCA ratio: 1.8 LEFT: End Diastole cm/sec ----- Left CCA: 13.6 ----- Left ICA: 38.5 ----- Left ECA: 0.0 VERTEBRALS (direction of flow): Right Vertebral: Antegrade Left Vertebral: Antegrade Rhythm: Normal Mild to Moderate mixed wall plaque seen in bilateral CCA, ECA, and ICA with abnormal elevated PSV see n in bilateral ECA. IMPRESSION: 1. Atheromatous plaquing without significant flow-limiting stenosis. Criteria for Assigning % of Stenosis / Diameter reduction (Estimation based on the indirect measurements of the internal carotid artery velocities (ICA PSV). 1. Normal (no stenosis)=ICA PSV < 125 cm/s: ratio < 2.0: ICA EDV<40 cm/s. 2. Less than 50% stenosis=ICA PSV < 125 cm/s: ratio < 2.0: ICA EDV<40 cm/s. 3. 50 to 69% stenosis=ICA PSV of 125 to 230 cm/s: ration 2.0 ? 4.0: ICA EDV 40-100 cm/s. 4. Greater than 70% stenosis to near occlusion= ICA PSV > 230 cm/s: ratio > 4.0: ICA EDV > 100 cm/s. 5. Near occlusion= ICA PSV velocities may be low or undetectable: variable ratio and ICA EDV. 6. Total occlusion=unable to detect flow.
== END | disposition home or self-care (01) ==
LOC: RADUSWWP 09:11
PROVIDERS: ATTEND Otolaryngology
DX: I65.23 Occlusion and stenosis of bilateral carotid arteries (principal)
CPT/HCPCS: 93880

== ENCOUNTER → 2020-04-18 | Outpatient (CLI) | payer BC, MEDICARE ==
[2020-04-18 11:27] LABS: HCT 47.4 % (39.0-53.0); HGB 15.7 gm/dL (13.0-17.5); MCH 31.6 pg (25.0-35.0); MCHC 33.1 g/dL (31.0-37.0); MCV 95.6 fL (80.0-100.0); Mean Platelet Volume 6.2; Platelet Count 405 k/uL (150-450); RBC 4.96 m/uL (4.30-5.90); RDW 12.6 % (11.5-15.5); WBC 13.7 k/uL (3.8-10.6)
[2020-04-18 12:14] LABS: ALT 23 U/L (4-49); AST 22 U/L (17-59); African American GFR (CKD) >90 (>60 ml/min/1.73 sqM); Albumin 4.7 g/dL (3.5-5.0); Alkaline Phosphatase 96 U/L (38-126); Anion Gap 10 mmol/L; Blood Urea Nitrogen 20 mg/dL (9-20); C Reactive Protein <5.0 mg/L (<10.0); Calcium 9.9 mg/dL (8.4-10.2); Carbon Dioxide 32 mmol/L (22-30); Chloride 96 mmol/L (98-107); Glucose 98 mg/dL (74-99); Non-African American GFR(CKD) >90 (>60 ml/min/1.73 sqM); Potassium 4.4 mmol/L (3.5-5.1); Sodium 138 mmol/L (137-145); Total Bilirubin 0.6 mg/dL (0.2-1.3); Total Protein 8.3 g/dL (6.3-8.2)
[2020-04-18 13:31] LABS: Erythrocyte Sedimentation Rate 8 mm/hr (0-15)
--- NOTE | 2020-04-18 15:02 | CT ---
EXAMINATION TYPE: CT abdomen pelvis wo/w con DATE OF EXAM: 04/18/2020 COMPARISON: 03/06/2018 INDICATION: unspecified abdominal pain DLP: 1389.8 mGycm, Automated exposure control for dose reduction was used. CONTRAST: 100 mL of Isovue 300. Study performed with Oral Contrast TECHNIQUE: Axial images were obtained from above the diaphragm to the pubic rami in the axial plane a t 5 mm thick sections. Reconstructed images are reviewed on the computer in the coronal plane. FINDINGS: Limited CT sections are obtained the lung bases. The lung bases are clear. Hiatal hernia is present CT ABDOMEN: Liver: Normal Spleen: Normal Pancreas: Normal Adrenal glands: The adrenal glands are normal. Gallbladder: Normal Kidneys: No masses are evident. No hydronephrosis is present. No cysts are present. Delayed images were obtained through the kidneys, which remain unremarkable. No renal stones on precontrast imaging . Aorta: Vascular calcification is within the aorta. Inferior vena cava: Normal. CT PELVIS: Some mild wall thickening within the nondistended sigmoid colon. Consider colitis. Remaining Loops of bowel within the abdomen and pelvis are normal. There are loops of bowel which are incompletely distended or lack oral contrast limiting their evaluation. Appendix: Not identified. No dilated tubular structures or inflammatory changes are evident. Urinary bladder: Normal. Genitourinary structures: Prostate is slightly prominent. Osseous structures: No suspicious lytic or sclerotic lesions. IMPRESSIONS: 1. Mild colitis of the sigmoid colon is not excluded. Correlate with symptoms.
== END | disposition home or self-care (01) ==
LOC: RADCTMAIN 10:46
PROVIDERS: ATTEND Internal Medicine Gastroenterology
DX: R10.9 Unspecified abdominal pain (principal); K51.011 Ulcerative (chronic) pancolitis with rectal bleeding
CPT/HCPCS: 80053; 85652; 85027; 86140; 74178; Q9967

== ENCOUNTER → 2020-05-15 | Outpatient (CLI) | payer BC, MEDICARE ==
--- NOTE | 2020-06-16 11:24 | EM ---
EVENT MONITOR A 14-day event monitor. Rhythm strips were reviewed. The patient had predominant sinus rhythm. There was one episode when he had a rhythm strip of sinus with some PACs. There is no evidence of atrial fibrillation. There is no evidence of any ventricular arrhythmias. This is an unremarkable 14-day event monitor. This is a 30-day event monitor. Rhythm strips were reviewed. There is evidence of predominant sinus rhythm with PACs. There were 2 rhythm strips reviewed, strip #10 and strip #11 both of these were on 05/20/2020 at 11:40 p.m. 11:41 p.m. and both of these suggest atrial fibrillation at a rate of about 140, 130 beats per minute and then the remaining strips are all sinus. FINAL IMPRESSION: This is a 30-day event monitor. Rhythm strips were reviewed. There are 2 strips that suggest atrial fibrillation, all the rest of them were sinus with some PACs. MMODL / IJN: [id number] /
== END | disposition home or self-care (01) ==
LOC: RADECHMAIN 11:52
PROVIDERS: ATTEND Psychiatry & Neurology Neurology
DX: I49.1 Atrial premature depolarization (principal)
CPT/HCPCS: 93270

== ENCOUNTER → 2021-01-17 | Outpatient (CLI) | payer MEDICARE ==
--- NOTE | 2021-01-17 14:00 | XR ---
EXAMINATION TYPE: XR chest 2V DATE OF EXAM: 01/17/2021 COMPARISON: 02/23/2020 HISTORY: 60-year-old male abnormal blood work, TB TECHNIQUE: Frontal and lateral views FINDINGS: Heart normal size. Aorta and pulmonary vasculature within normal limits. There is hyperinflation with flattening of the hemidiaphragms. No consolidation or pleural effusion. IMPRESSION: COPD but otherwise without acute cardiopulmonary process. No obvious signs of active TB or cavitary l esions identified. If more detailed parenchymal assessment is desired, CT can be considered.
[2021-01-17 18:28] LABS: African American GFR (CKD) 114.1 (60.0-200.0); Albumin 3.7 g/dL (3.8-4.9); Albumin/Globulin Ratio 1.42 (1.60-3.17); Anion Gap 11.5 mmol/L (4.00-12.00); BUN/Creat Ratio 20.25 Ratio (12.00-20.00); Blood Urea Nitrogen 16.2 mg/dL (9.0-27.0); C Reactive Protein 0.5 mg/dL (0.00-0.80); Calcium 9.4 mg/dL (8.7-10.3); Carbon Dioxide 26.5 mmol/L (21.6-31.8); Globulin 2.6 g/dL (1.6-3.3); Non-African American GFR(CKD) 98.5 (60.0-200.0); Potassium 4.4 mmol/L (3.5-5.5); Total Bilirubin 0.5 mg/dL (0.30-1.20); Total Protein 6.3 g/dL (6.2-8.2)
[2021-01-17 21:11] LABS: Basophils # (A) 0.02 X 10*3/uL (0.00-0.10); Basophils % (A) 0.2 %; Eosinophils # (A) 0 X 10*3/uL (0.04-0.35); Eosinophils % (A) 0 %; HCT 43.3 % (39.6-50.0); HGB 13.6 g/dL (13.0-17.0); Lymphocytes # (A) 1.23 X 10*3/uL (0.90-5.00); Lymphocytes % (A) 11.3 %; MCH 32.1 pg (27.0-32.0); MCHC 31.4 g/dL (32.0-37.0); MCV 102.1 fL (80.0-97.0); Mean Platelet Volume 8.5 fL (9.5-12.2); Monocytes # (A) 0.61 X 10*3/uL (0.20-1.00); Monocytes % (A) 5.6 %; Neutrophils # (A) 8.96 X 10*3/uL (1.80-7.70); Neutrophils % (A) 82.2 %; Platelet Count 396 X 10*3/uL (140-440); RBC 4.24 X 10*6/uL (4.40-5.60); RDW 14.6 % (11.5-14.5)
[2021-01-17 22:33] LABS: Erythrocyte Sedimentation Rate 9 mm/Hr (0-20)
== END | disposition home or self-care (01) ==
LOC: LABWHC1 10:23
PROVIDERS: ATTEND Internal Medicine Infectious Disease
DX: A15.9 Respiratory tuberculosis unspecified (principal)
CPT/HCPCS: 36415; 71046; 80053; 84145; 85025; 85652; 86140

== ENCOUNTER → 2021-02-20 | Outpatient (CLI) | payer MEDICARE ==
[2021-02-20 19:43] LABS: ALT 18 U/L (10-49); AST 14 U/L (14-35); Albumin 3.7 g/dL (3.8-4.9); Albumin/Globulin Ratio 1.27 (1.60-3.17); Alkaline Phosphatase 78 U/L (41-126); Bilirubin, Conjugated <0.20 mg/dL (0.20-0.40); Globulin 2.9 g/dL (1.6-3.3); Total Bilirubin <0.20 mg/dL (0.30-1.20); Total Protein 6.6 g/dL (6.2-8.2)
== END | disposition home or self-care (01) ==
LOC: LABWHC1 10:10
PROVIDERS: ATTEND Internal Medicine Infectious Disease
DX: K92.2 Gastrointestinal hemorrhage, unspecified (principal); A15.9 Respiratory tuberculosis unspecified; R10.9 Unspecified abdominal pain; R65.10 Systemic inflammatory response syndrome (SIRS) of non-infectious origin without acute organ dysfunction
CPT/HCPCS: 36415; 80076

== ENCOUNTER → 2021-03-07 | Outpatient (CLI) | payer BC, MEDICARE ==
--- NOTE | 2021-03-07 19:20 | XR ---
EXAMINATION TYPE: XR chest 2V DATE OF EXAM: 03/07/2021 COMPARISON: 01/17/2021 HISTORY: 60-year-old male R05.9, cough TECHNIQUE: Frontal and lateral views FINDINGS: Heart normal size. Aorta within normal limits. Hyperinflation. Some strandy atelectasis in the lower lungs. No consolidation or pleural effusion. IMPRESSION: COPD. No acute process seen.
[2021-03-07 19:42] LABS: ALT 18 U/L (10-49); AST 13 U/L (14-35); African American GFR (CKD) 112.8 (60.0-200.0); Albumin/Globulin Ratio 1.49 (1.60-3.17); Alkaline Phosphatase 75 U/L (41-126); BUN/Creat Ratio 9.51 Ratio (12.00-20.00); Bilirubin, Conjugated <0.20 mg/dL (0.20-0.40); Blood Urea Nitrogen 7.8 mg/dL (9.0-27.0); Calcium 9.5 mg/dL (8.7-10.3); Carbon Dioxide 26.6 mmol/L (20.0-27.5); Chloride 103 mmol/L (96-109); Globulin 2.7 g/dL (1.6-3.3); Glucose 100 mg/dL (70-110); Non-African American GFR(CKD) 97.3 (60.0-200.0); Potassium 4.2 mmol/L (3.5-5.5); Sodium 142 mmol/L (135-145); Total Bilirubin <0.20 mg/dL (0.30-1.20); Total Protein 6.7 g/dL (6.2-8.2)
== END | disposition home or self-care (01) ==
LOC: LABWHC1 12:41
PROVIDERS: ATTEND Internal Medicine Infectious Disease
DX: A15.9 Respiratory tuberculosis unspecified (principal); R05.9 Cough, unspecified
CPT/HCPCS: 36415; 71046; 80048; 80076

== ENCOUNTER → 2021-03-07 | Outpatient (CLI) | payer BC, MEDICARE ==
--- NOTE | 2021-03-07 19:27 | US ---
EXAMINATION TYPE: US groin LT DATE OF EXAM: 03/07/2021 COMPARISON: NONE CLINICAL HISTORY: 60-year-old male R22.9 SWELLING,MASS AND LUMP, R10.2 PELVIC AND PERINEAL PAIN. TECHNIQUE: Targeted ultrasound examination of the left inguinal region for assessment of hernia. FINDINGS: Hospital Chief Financial Officer notes: Left groin assessed for hernia. Shadowing area appears to be mesh related to previ ous hernia repair. There are no areas of abnormal bulging with valsalva at this area. No hernia or ma ss seen on today's ultrasound. IMPRESSION: Some shadowing seen in the left inguinal region likely relates to prior mesh repair. No discrete ingu inal hernia identified with Valsalva maneuvers.
== END | disposition home or self-care (01) ==
LOC: RADUSWWP 13:16
PROVIDERS: ATTEND Family Medicine
DX: R22.9 Localized swelling, mass and lump, unspecified (principal); R10.2 Pelvic and perineal pain

== ENCOUNTER 2021-03-27 09:18 | Inpatient (IN) | payer BC, MEDICARE ==
--- NOTE | 2021-03-27 09:42 | XR ---
EXAMINATION TYPE: XR chest 1V portable DATE OF EXAM: 03/27/2021 COMPARISON: Chest x-ray March 07, 2011. HISTORY: Difficulty in breathing. TECHNIQUE: Single frontal view of the chest is obtained. FINDINGS: There is underlying mild chronic emphysematous change. Presents with new peripheral increa sed opacities bilaterally. No pleural effusion or pneumothorax seen. The cardiac silhouette size rem ains upper limits of normal. The osseous structures are intact. IMPRESSION: New Bilateral peripheral multifocal increased opacities consistent with covid-19 infecti on thought present. Correlate clinically.
[2021-03-27] MEDS ORDERED: DEXAMETHASONE SOD PHOSPHATE 10 MG/ML 1 ML VIAL IV STA (09:52)
[2021-03-27 10:02] LABS: ALT 18 U/L (4-49); African American GFR (CKD) >90 (>60 ml/min/1.73 sqM); Albumin 3.3 g/dL (3.5-5.0); Anion Gap 6 mmol/L; Blood Urea Nitrogen 9 mg/dL (9-20); Carbon Dioxide 27 mmol/L (22-30); Chloride 105 mmol/L (98-107); Glucose 110 mg/dL (74-99); Non-African American GFR(CKD) >90 (>60 ml/min/1.73 sqM); Sodium 138 mmol/L (137-145); Total Bilirubin 0.7 mg/dL (0.2-1.3); Total Protein 6.7 g/dL (6.3-8.2)
[2021-03-27 10:03] LABS: AST 23 U/L (17-59); Potassium 4.5 mmol/L (3.5-5.1)
[2021-03-27 10:04] LABS: Alkaline Phosphatase 59 U/L (38-126)
--- NOTE | 2021-03-27 10:13 | ED ---
General Adult HPI - General Chief complaint: Shortness of Breath Stated complaint: RADHA, + tb Time Seen by Provider: 03/27/21 09:19 Source: patient, EMS, RN notes reviewed, old records reviewed Mode of arrival: EMS Limitations: no limitations - History of Present Illness Initial comments: 61-year-old male transported by paramedics for dyspnea, cough, and concern for pneumothorax. Patient recently diagnosed with tuberculosis and is currently receiving treatment although he is uncertain what medication he is on. He is a poor historian regarding his medical history. He states he's had at least a week if not longer of cough however this has worsened. Apparently the an outpatient chest x-ray revealed a pneumothorax on the left and the patient was sent to the hospital for evaluation. He denies fever. He reports significant cough which is predominantly dry. - Related Data Home Medications Medication Instructions Recorded Confirmed Ibuprofen 800 mg PO TID 08/20/16 03/27/21 Ascorbic Acid/Multivit-Min 1,000 mg PO DAILY 03/06/18 03/27/21 [Emergen-C 1,000 mg Packet] Atorvastatin [Lipitor] 40 mg PO DAILY 03/06/18 03/27/21 Lisinopril [Zestril] 10 mg PO DAILY PRN 03/06/18 03/27/21 traMADol HCL [Ultram] 50 mg PO QID PRN 03/06/18 03/27/21 methocarbamoL [Robaxin] 500 mg PO HS 12/01/18 03/27/21 Aspirin EC [Ecotrin Low Dose] 81 mg PO DIRECTED 03/27/21 03/27/21 Famotidine [Pepcid] 20 mg PO BID 03/27/21 03/27/21 Fluticasone Nasal [place] [Flonase 2 spray EA NOSTRIL DAILY 03/27/21 03/27/21 Nasal [place]] Hyoscyamine Er 0.375mg 0.375 mg PO Q12H 03/27/21 03/27/21 Metoprolol Tartrate [Lopressor] 25 mg PO BID 03/27/21 03/27/21 rifAMPin [Rifampin] 600 mg PO DAILY 03/27/21 03/27/21 Allergies Allergy/AdvReac Type Severity Reaction Status Date / Time methiolate Allergy Swelling Uncoded 03/27/21 10:35 STYROFOAM Allergy Swelling Uncoded 03/27/21 10:35 Review of Systems ROS Statement: Those systems with pertinent positive or pertinent negative responses have been documented in the HPI. ROS Other: All systems not noted in ROS Statement are negative. Past Medical History Past Medical History: CVA/TIA, GERD/Reflux, Osteoarthritis (OA) Additional Past Medical History / Comment(s): freq diarrhea, colitis,TIA 201 2,MURMUR,ULCER,states "feels like my heart flutters sometimes" History of Any Multi-Drug Resistant Organisms: None Reported Past Surgical History: Back Surgery, Hernia Repair Additional Past Surgical History / Comment(s): back sx X4, lt inguinal hernia X 3, latent Tb Past Anesthesia/Blood Transfusion Reactions: Family History of Problems w/ Anesthesia Additional Past Anesthesia/Blood Transfusion Reaction / Comment(s): sister has difficulty waking up from anesthesia Past Psychological History: No Psychological Hx Reported Smoking Status: Never smoker Past Alcohol Use History: None Reported Past Drug Use History: Marijuana - Past Family History Sister(s) Family Medical History: Cancer Additional Family Medical History / Comment(s): BREAST CANCER Father Family Medical History: Dementia Additional Family Medical History / Comment(s): VALVE REPLACEMENT, BACK SX HIP SX AFTER MOTOR CYCLE ACCIDENT.DEPRESSION. Mother Family Medical History: Hypertension, Osteoarthritis (OA) Additional Family Medical History / Comment(s): HIT BY A SEMI TRUCK CRUSHING LEG INJURY. General Exam Limitations: no limitations General appearance: alert, in distress Head exam: Present: atraumatic, normocephalic Eye exam: Present: normal appearance, PERRL ENT exam: Present: mucous membranes dry Neck exam: Present: normal inspection. Absent: tenderness, meningismus Respiratory exam: Present: respiratory distress, wheezes, rhonchi Cardiovascular Exam: Present: regular rate, normal rhythm GI/Abdominal exam: Present: soft. Absent: distended, tenderness, guarding Extremities exam: Present: normal inspection, normal capillary refill. Absent: pedal edema Neurological exam: Present: alert, oriented X3, CN II-XII intact. Absent: motor sensory deficit Psychiatric exam: Present: normal affect, normal mood Skin exam: Present: warm, dry, intact. Absent: cyanosis, diaphoretic Course Vital Signs 03/27/21 03/27/21 09:35 10:38 Temperature 98.4 F Pulse Rate 76 73 Respiratory 18 20 Rate Blood Pressure 137/91 131/79 O2 Sat by Pulse 99 99 Oximetry Medical Decision Making - Medical Decision Making 61-year-old male who admits that in for dyspnea and EMS reported a pneumothorax on outpatient x-ray. I did repeat an x-ray which is negative for pneumothorax, showed an interstitial possible pneumonia. CT was ordered which was negative for pulmonary and wasn't, negative for pneumonia, negative for pneumothorax. The patient does have some emphysema in moderate respiratory distress. He is requiring supplemental oxygen. There is a history of tuberculosis in this patient he is uncertain of the medications he is on. He will be kept in isolation and infectious disease will be placed on consult as well as pulmonology. Case discussed with Dr. kwok who will admit. - Lab Data Result diagrams: 03/27/21 09:38 03/27/21 09:38 Lab Results 03/27/21 03/27/21 03/27/21 Range/Units 09:38 09:38 09:38 WBC 14.8 H (3.8-10.6) k/uL RBC 4.29 L (4.30-5.90) m/uL Hgb 14.0 (13.0-17.5) gm/dL Hct 42.8 (39.0-53.0) % MCV 99.8 (80.0-100.0) fL MCH 32.6 (25.0-35.0) pg MCHC 32.7 (31.0-37.0) g/dL RDW 14.6 (11.5-15.5) % Plt Count 476 H (150-450) k/uL MPV 7.2 Neutrophils % 74 % Lymphocytes % 14 % Monocytes % 10 % Eosinophils % 1 % Basophils % 0 % Neutrophils # 10.9 H (1.3-7.7) k/uL Lymphocytes # 2.0 (1.0-4.8) k/uL Monocytes # 1.5 H (0-1.0) k/uL Eosinophils # 0.1 (0-0.7) k/uL Basophils # 0.1 (0-0.2) k/uL Macrocytosis Slight PT 10.0 (9.0-12.0) sec INR 0.9 (<1.2) APTT 24.3 (22.0-30.0) sec Sodium 138 (137-145) mmol/L Potassium 4.5 (3.5-5.1) mmol/L Chloride 105 (98-107) mmol/L Carbon Dioxide 27 (22-30) mmol/L Anion Gap 6 mmol/L BUN 9 (9-20) mg/dL Creatinine 0.66 (0.66-1.25) mg/dL Est GFR (CKD-EPI)AfAm >90 (>60 ml/min/1.73 sqM) Est GFR (CKD-EPI)NonAf >90 (>60 ml/min/1.73 sqM) Glucose 110 H (74-99) mg/dL Calcium 9.0 (8.4-10.2) mg/dL Total Bilirubin 0.7 (0.2-1.3) mg/dL AST 23 (17-59) U/L ALT 18 (4-49) U/L Alkaline Phosphatase 59 (38-126) U/L Total Protein 6.7 (6.3-8.2) g/dL Albumin 3.3 L (3.5-5.0) g/dL Coronavirus (PCR) (Not Detectd) 03/27/21 Range/Units 09:56 WBC (3.8-10.6) k/uL RBC (4.30-5.90) m/uL Hgb (13.0-17.5) gm/dL Hct (39.0-53.0) % MCV (80.0-100.0) fL MCH (25.0-35.0) pg MCHC (31.0-37.0) g/dL RDW (11.5-15.5) % Plt Count (150-450) k/uL MPV Neutrophils % % Lymphocytes % % Monocytes % % Eosinophils % % Basophils % % Neutrophils # (1.3-7.7) k/uL Lymphocytes # (1.0-4.8) k/uL Monocytes # (0-1.0) k/uL Eosinophils # (0-0.7) k/uL Basophils # (0-0.2) k/uL Macrocytosis PT (9.0-12.0) sec INR (<1.2) APTT (22.0-30.0) sec Sodium (137-145) mmol/L Potassium (3.5-5.1) mmol/L Chloride (98-107) mmol/L Carbon Dioxide (22-30) mmol/L Anion Gap mmol/L BUN (9-20) mg/dL Creatinine (0.66-1.25) mg/dL Est GFR (CKD-EPI)AfAm (>60 ml/min/1.73 sqM) Est GFR (CKD-EPI)NonAf (>60 ml/min/1.73 sqM) Glucose (74-99) mg/dL Calcium (8.4-10.2) mg/dL Total Bilirubin (0.2-1.3) mg/dL AST (17-59) U/L ALT (4-49) U/L Alkaline Phosphatase (38-126) U/L Total Protein (6.3-8.2) g/dL Albumin (3.5-5.0) g/dL Coronavirus (PCR) Not Detected (Not Detectd) Disposition Clinical Impression: Acute exacerbation of chronic obstructive pulmonary disease Disposition: ADMITTED IP TO THIS [facility] Condition: Stable Is patient prescribed a controlled substance at d/c from ED?: No Referrals: Skip Stratton DO [Primary Care Provider] - 1-2 days Decision to Admit Reason: Admit from EC Decision Date: 03/27/21 Decision Time: 13:07
[2021-03-27 10:18] LABS: Basophils # (A) 0.1 k/uL (0-0.2); Basophils % (A) 0 %; Eosinophils # (A) 0.1 k/uL (0-0.7); Eosinophils % (A) 1 %; HCT 42.8 % (39.0-53.0); Lymphocytes % (A) 14 %; MCH 32.6 pg (25.0-35.0); MCHC 32.7 g/dL (31.0-37.0); MCV 99.8 fL (80.0-100.0); Macrocytosis Slight; Mean Platelet Volume 7.2; Monocytes # (A) 1.5 k/uL (0-1.0); Monocytes % (A) 10 %; Neutrophils # (A) 10.9 k/uL (1.3-7.7); Neutrophils % (A) 74 %; Platelet Count 476 k/uL (150-450); RBC 4.29 m/uL (4.30-5.90); RDW 14.6 % (11.5-15.5); WBC 14.8 k/uL (3.8-10.6)
[2021-03-27 10:25] LABS: INR 0.9 (<1.2); Partial Thromboplastin Time 24.3 sec (22.0-30.0)
[2021-03-27] MEDS ORDERED: ALBUTEROL HFA INHALER INHALATION STA (11:00)
--- NOTE | 2021-03-27 12:26 | CT ---
EXAMINATION TYPE: CT angio chest DATE OF EXAM: 03/27/2021 COMPARISON: Chest x-ray earlier today HISTORY: RADHA, +TB CT DLP: 341.1 mGycm. Automated Exposure Control for Dose Reduction was Utilized. CONTRAST: CTA scan of the thorax is performed without and with IV Contrast, patient injected with 100 ml mL of Isovue 370, pulmonary embolism protocol. MIP Images are created on CT scanner and reviewed. FINDINGS: LUNGS: Moderate underlying emphysematous change greatest in the upper lungs is present. No suspicious focal consolidation or groundglass opacity. Some respiratory motion artifact and rotation is present . No pleural effusion or pneumothorax seen bilaterally. MEDIASTINUM: There is satisfactory enhancement of the pulmonary artery and its branches, there is no CT evidence for pulmonary embolism. Prominent right and left pulmonary arteries suggests underlying p ulmonary artery hypertension. There are no greater than 1 cm hilar or mediastinal lymph nodes. No cardiomegaly or pericardial effusion is seen. OTHER: No additional significant abnormality is seen. IMPRESSION: 1. No CT evidence for acute pulmonary embolism. 2. Suggestion of faint peripheral groundglass opacities on chest x-ray do not reproduce on CT study. Moderate emphysematous change without acute pulmonary process on CT.
[2021-03-27] MEDS ORDERED: IPRATROPIUM-ALBUTEROL 3 ML NEB INHALATION PRN (13:02)
[2021-03-27] MEDS: AZITHROMYCIN 500 MG TAB PO SCH (13:41)
--- NOTE | 2021-03-27 16:47 | HP ---
HISTORY AND PHYSICAL DATE OF SERVICE: 03/27/2021 CHIEF COMPLAINTS: Shortness of breath. HISTORY OF PRESENT ILLNESS: This 61-year-old gentleman with a past medical history of CVA, TIA, DVT, GERD, DJD, history of recurrent diarrhea, history of colitis with TIA, history of cardiac , back surgery, being followed by a [place] was having shortness of breath. The patient apparently had diagnosis of TB in the and treated with medications for 1 year. Subsequently, patient was repeatedly positive for testing for which that the patient unable to specify and was reporting to the health department on a yearly basis but subsequently the test became negative. Currently the patient has shortness of breath and cough and there was a concern of pneumothorax. The admitted for further evaluation and treatment. Admission white count is 14.8 and Covid test done here is reported as negative and a chest CTA which was done which showed no evidence of pulmonary embolism and faint peripheral ground-glass opacities was noted. Moderate emphysematous changes and some thickening of the bronchus and the pre bronchial changes also noted. There is no history of any fever, rigor or chills at this time. PAST MEDICAL HISTORY: History of CVA, TIA, GERD, DJD, history of acute diarrhea, colitis, TIA. MEDICATIONS: Home medications are Ultram, rifampin, Robaxin, Lopressor, Zestril, ibuprofen, Pepcid, Lipitor, Ecotrin, other medication doses are reviewed. ALLERGIES: AND STYROFOAM. FAMILY HISTORY: History of dementia. Valve replacement. SOCIAL HISTORY: History of smoking 1 pack per day previously. Alcohol about a half keg of beer. REVIEW OF SYSTEMS: ENT: No diminished vision. No diminished hearing. CARDIOVASCULAR: As mentioned earlier. RESPIRATORY: As mentioned earlier. GI: No nausea or vomiting. : No dysuria. NERVOUS SYSTEM: No numbness or weakness. ALLERGY/IMMUNOLOGY: No asthma or hayfever. MUSCULOSKELETAL: As mentioned earlier. HEMATOLOGY/ONCOLOGY: No history of anemia. ENDOCRINE: No history of diabetes or hypothyroidism. CONSTITUTIONAL: As mentioned earlier. DERMATOLOGY: Negative. RHEUMATOLOGY: Negative. PSYCHIATRIC: As mentioned earlier. PHYSICAL EXAMINATION: Patient is alert, oriented x3. The pulse is 76, blood pressure 137/91, respiration 18, temperature 98.4, pulse ox 99% on 4 L. HEENT: Conjunctivae normal. Oral mucosa moist. NECK: No jugular venous distention. No carotid bruit. No lymph node enlargement. CARDIOVASCULAR systems: S1, S2 muffled. RESPIRATION: Breath sounds diminished in the bases. A few scattered rhonchi and crackles. ABDOMEN: Soft, nontender. No mass palpable. LEGS: No edema. No swelling. NERVOUS SYSTEM: Higher functions as mentioned earlier. No focal deficits. LYMPHATICS: No lymph nodes palpable in the neck, axillae or groin. SKIN: No ulcers, no rashes and no bleeding. JOINTS: No active deforming arthropathy. LABS: A chest CT scan reviewed personally. WBC 14.8, platelets 477, other labs are noted. ASSESSMENT: 1. Shortness of breath for evaluation, possible chronic obstructive pulmonary disease, acute exacerbation with acute purulent tracheobronchitis. 2. Increased WBC. 3. Increased platelets. 4. History of TB treated about 20 years ago. 5. History of cerebrovascular accident, transient ischemic attack. 6. Rule out bronchiectasis. 7. Gastroesophageal reflux disease. 8. Degenerative joint disease. 9. Frequent diarrhea. 10.History of colitis. 11.History of transient ischemic attack. 12.History of back surgery, degenerative joint disease. 13.History of hernia repair. 14.History of nicotine dependence. RECOMMENDATIONS AND DISCUSSION: In this 61-year-old gentleman who presented with multiple complex medical issues, we will monitor the patient closely, continue the current medications, management and symptomatic treatment. We will initiate Infectious Disease and Pulmonary consultations to rule out the possibility of any active TB. Otherwise, we will continue to monitor. Albuterol inhaler will be used as well as Symbicort and steroids also will be initiated empirically. Prognosis guarded because of multiple complex medical issues. Further recommendations to follow. Repeat labs will be ordered. CT scan did not show any evidence of any pulmonary embolism. I would also check a UA and D. dimer also. MMODL / IJN: [id number] / LYNETTE
--- NOTE | 2021-03-27 17:10 | P.CNPUL ---
History of Present Illness Consult date: 03/27/21 Reason for consult: dyspnea History of present illness: This is a 61-year-old female patient came into the ED because of shortness of breath. The patient was complaining of increased dyspnea, cough and she was also concerned about possibility of a pneumothorax. Apparently the patient was diagnosed having a latent tuberculosis and currently she is receiving treatment. The exact treatment is not clear. The patient is a poor historian. She stated that she has been coughing for quite some time. Her cough was dry. The patient is an ex-tobacco smoker and the patient smokes weed almost on a daily basis. Note that the patient has had history of chronic diarrhea diagnosed having colitis. The patient was being seen in the GI services and the patient was placed on Humira. He is currently off treatment. Note that as the patient was being investigated for the from [employer], he was given a TB test and this was a blood test which are not to be positive. The patient was referred to infectious disease and the patient was placed on chemoprophylaxis which I'm assuming is rifampin. The patient was seen by Dr. singleton. I do not see evidence of any active or open TB in this patient at this point in time. The patient has not taken his COVID 19 vaccination. The patient has no exposure to COVID 19. Blood work in the emergency department showed a white cell count of 14.8 with a hemoglobin of 14 and a platelet count of 476. Normal coagulation profile. The patient had sotalol 138, BUN of 9 creatinine is 0.6 and normal LFTs. The COVID 19 testing Came back negative. The CT angiogram of the chest showed no evidence of any pulmonary embolism. There was some background COPD without any acute cardiopulmonary process. The pulmonary arteries were slightly dilated and prominence consistent with underlying possible pulmonary hypertension. no pericardial effusion. no pleural effusion. no areas of suspicious consolidation or groundglass infiltrates. the patient is currently on duoneb nebulized treatment [id number] and symbicort as maintenance and iv solu medrol 60 mg every 6 hours. Past Medical History Past Medical History: COPD, CVA/TIA, GERD/Reflux, Osteoarthritis (OA) Additional Past Medical History / Comment(s): History of chronic diarrhea with questionable colitis, history of cardiac murmur, COPD, previous history of CVA/TIA, acid reflux, peptic ulcer disease and degenerative arthritis. History of Any Multi-Drug Resistant Organisms: None Reported Past Surgical History: Back Surgery, Hernia Repair Additional Past Surgical History / Comment(s): back sx X4, lt inguinal hernia X 3, latent Tb Past Anesthesia/Blood Transfusion Reactions: Family History of Problems w/ Anesthesia Additional Past Anesthesia/Blood Transfusion Reaction / Comment(s): sister has difficulty waking up from anesthesia Past Psychological History: No Psychological Hx Reported Smoking Status: Never smoker Past Alcohol Use History: None Reported Past Drug Use History: Marijuana - Past Family History Sister(s) Family Medical History: Cancer Additional Family Medical History / Comment(s): BREAST CANCER Father Family Medical History: Dementia Additional Family Medical History / Comment(s): VALVE REPLACEMENT, BACK SX HIP SX AFTER MOTOR CYCLE ACCIDENT.DEPRESSION. Mother Family Medical History: Hypertension, Osteoarthritis (OA) Additional Family Medical History / Comment(s): HIT BY A SEMI TRUCK CRUSHING LEG INJURY. Medications and Allergies Home Medications Medication Instructions Recorded Confirmed Type Ibuprofen 800 mg PO TID 08/20/16 03/27/21 History Ascorbic Acid/Multivit-Min 1,000 mg PO DAILY 03/06/18 03/27/21 History [Emergen-C 1,000 mg Packet] Atorvastatin [Lipitor] 40 mg PO DAILY 03/06/18 03/27/21 History Lisinopril [Zestril] 10 mg PO DAILY PRN 03/06/18 03/27/21 History traMADol HCL [Ultram] 50 mg PO QID PRN 03/06/18 03/27/21 History methocarbamoL [Robaxin] 500 mg PO HS 12/01/18 03/27/21 History Aspirin EC [Ecotrin Low Dose] 81 mg PO DIRECTED 03/27/21 03/27/21 History Famotidine [Pepcid] 20 mg PO BID 03/27/21 03/27/21 History Fluticasone Nasal [place] [Flonase 2 spray EA NOSTRIL DAILY 03/27/21 03/27/21 History Nasal [place]] Hyoscyamine Er 0.375mg 0.375 mg PO Q12H 03/27/21 03/27/21 History Metoprolol Tartrate [Lopressor] 25 mg PO BID 03/27/21 03/27/21 History rifAMPin [Rifampin] 600 mg PO DAILY 03/27/21 03/27/21 History Allergies Allergy/AdvReac Type Severity Reaction Status Date / Time methiolate Allergy Swelling Uncoded 03/27/21 10:35 STYROFOAM Allergy Swelling Uncoded 03/27/21 10:35 Physical Exam Vitals: Vital Signs Temp Pulse Resp BP Pulse Ox 03/27/21 10:38 73 20 131/79 99 03/27/21 09:35 98.4 F 76 18 137/91 99 Intake and Output 03/27/21 03/27/21 03/27/21 06:59 14:59 22:59 Other: Weight 91.172 kg General appearance: alert, in distress, breathing is labored and the patient is currently on 4 L of oxygen by nasal cannula with a pulse ox of 99% Head exam: Present: atraumatic, normocephalic Eye exam: Present: normal appearance, PERRL ENT exam: Present: mucous membranes dry Neck exam: Present: normal inspection. Absent: tenderness, meningismus Respiratory exam: Present: respiratory distress, wheezes, rhonchi, there is prolongation of the sedation phase of breathing and the patient actively bronchospastic and wheezy. Cardiovascular Exam: Present: regular rate, normal rhythm GI/Abdominal exam: Present: soft. Absent: distended, tenderness, guarding Extremities exam: Present: normal inspection, normal capillary refill. Absent: pedal edema Neurological exam: Present: alert, oriented X3, CN II-XII intact. Absent: motor sensory deficit Psychiatric exam: Present: normal affect, normal mood Skin exam: Present: warm, dry, intact. Absent: cyanosis, diaphoretic Results - Laboratory Findings CBC and BMP: 03/27/21 09:38 03/27/21 09:38 PT/INR, D-dimer PT 10.0 sec (9.0-12.0) 03/27/21 09:38 INR 0.9 (<1.2) 03/27/21 09:38 Abnormal lab findings: Abnormal Labs 03/27/21 03/27/21 09:38 09:38 WBC 14.8 H RBC 4.29 L Plt Count 476 H Neutrophils # 10.9 H Monocytes # 1.5 H Glucose 110 H Albumin 3.3 L - Diagnostic Findings Chest x-ray: image reviewed Assessment and Plan Plan: 1 acute COPD exacerbation with secondary shortness of breath. CT of the chest showed no evidence of any already consolidation, groundglass changes or any pulmonary embolism. No evidence of pneumonia. The patient diffuse emphysem atous changes bilaterally consistent with COPD. the patient has not been vaccinated for COVID 19. The patient has no exposure to COVID 19 at this point in time. COVID 19 PCR came back negative. He is on home 02 and he has been using Proair and Nebulizer 2 latent TB likely. No evidence of any active tuberculosis at this point in time. The patient had exposure to grandfather who of TB the patient was evaluated by infectious disease and the patient was placed on chemoprophylaxis. I believe the patient was taken rifampin. 3 hypertension 4 hyperlipidemia 5 osteoarthritis 6 chronic diarrhea secondary to colitis, possible Ulcerative colitis , maintained on prednisone 20 mg BID for the past 2 weeks as part of burst taper 7 tobacco smoking 8 marijuana smoking 9 chronic back pain Plan We'll treat this patient for an acute COPD exacerbation. We'll put him on accommodation bronchodilators and steroids. Patient will be placed on a combination of Perforomist and Pulmicort neb last treatment twice a day. His presentation is typical of an acute COPD exacerbation. Check pro calcitonin level. Continue Zithromax as an empiric antibiotic coverage for now. No need for TB isolation
[2021-03-27] MEDS ORDERED: SYMBICORT 160-4.5 MCG INHALER INHALATION SCH (20:00)
[2021-03-27] MEDS: methylPREDNISolone SOD SUCCI 125 MG/2 ML VIAL IV SCH (22:25)
[2021-03-27] MEDS: IPRATROPIUM-ALBUTEROL 3 ML NEB INHALATION SCH (23:13)
[2021-03-27] MEDS: BUDESONIDE 1 MG/2 ML NEBU INHALATION SCH (23:14)
[2021-03-27] MEDS: FORMOTEROL FUMARATE 20 MCG/2 ML NEBU INHALATION SCH (23:14)
[2021-03-27] MEDS ORDERED: lisinopriL 10 MG TAB PO PRN (23:24)
[2021-03-27] MEDS ORDERED: methocarbamoL 500 MG TAB PO STA (23:26)
[2021-03-27] MEDS ORDERED: traMADol 50 MG TAB PO STA (23:26)
[2021-03-27] MEDS: HEPARIN SODIUM,PORCINE/PF 5,000 UNIT/0.5 ML SYRINGE SQ SCH (23:28)
[2021-03-27] MEDS ORDERED: NON FORMULARY DRUG (Aspirin Ec 81 MG Tablet) PO SCH (23:30)
[2021-03-27] MEDS ORDERED: ASPIRIN 81 MG PO PRN (23:31)
[2021-03-28] MEDS: methylPREDNISolone SOD SUCCI 125 MG/2 ML VIAL IV SCH ×4 (00:09→18:41)
[2021-03-28] MEDS: HYOSCYAMINE SULFATE 0.375 MG TAB.ER.12H PO SCH ×3 (00:09→20:08)
[2021-03-28] MEDS: FORMOTEROL FUMARATE 20 MCG/2 ML NEBU INHALATION SCH ×2 (07:26→20:40)
[2021-03-28] MEDS: BUDESONIDE 1 MG/2 ML NEBU INHALATION SCH ×2 (07:26→20:40)
[2021-03-28] MEDS: IPRATROPIUM-ALBUTEROL 3 ML NEB INHALATION SCH ×4 (07:26→20:40)
[2021-03-28] MEDS: ATORVASTATIN 40 MG TAB PO SCH (08:04)
[2021-03-28] MEDS: rifAMPin 300 MG CAP PO SCH (08:04)
[2021-03-28] MEDS: HEPARIN SODIUM,PORCINE/PF 5,000 UNIT/0.5 ML SYRINGE SQ SCH ×3 (08:04→20:12)
[2021-03-28] MEDS: PANTOPRAZOLE 40 MG TABLET PO SCH (08:04)
[2021-03-28] MEDS: FAMOTIDINE 20 MG TAB PO SCH ×2 (08:04→20:09)
[2021-03-28] MEDS: IBUPROFEN 800 MG TAB PO SCH ×2 (08:04→18:41)
[2021-03-28] MEDS: METOPROLOL TARTRATE 25 MG TAB PO SCH ×2 (08:05→20:09)
[2021-03-28] MEDS: AZITHROMYCIN 500 MG TAB PO SCH (08:36)
[2021-03-28] MEDS: FLUTICASONE 50MCG/SPRAY NASAL 16GM EA NOSTRIL SCH (08:36)
[2021-03-28] MEDS ORDERED: [UNRECOGNIZED DRUG - OTHER] PO SCH (09:00)
[2021-03-28] MEDS ORDERED: ASCORBIC ACID PO SCH (09:00)
[2021-03-28] MEDS ORDERED: MULTIVIT MIN PO SCH (09:00)
[2021-03-28 09:21] LABS: African American GFR (CKD) 115.9 (60.0-200.0); Anion Gap 10.7 mmol/L (10.00-18.00); BUN/Creat Ratio 10.01 Ratio (12.00-20.00); Blood Urea Nitrogen 7.6 mg/dL (9.0-27.0); Calcium 8.9 mg/dL (8.7-10.3); Potassium 4.5 mmol/L (3.5-5.5)
[2021-03-28 09:50] LABS: Basophils # (A) 0.03 X 10*3/uL (0.00-0.10); Basophils % (A) 0.3 %; Eosinophils # (A) 0.01 X 10*3/uL (0.04-0.35); Eosinophils % (A) 0.1 %; HCT 39.4 % (39.6-50.0); HGB 12.6 g/dL (13.0-17.0); Lymphocytes # (A) 2.72 X 10*3/uL (0.90-5.00); Lymphocytes % (A) 24.1 %; MCH 31.9 pg (27.0-32.0); MCV 99.7 fL (80.0-97.0); Mean Platelet Volume 8.7 fL (9.5-12.2); Monocytes # (A) 1.12 X 10*3/uL (0.20-1.00); Monocytes % (A) 9.9 %; Neutrophils # (A) 7.35 X 10*3/uL (1.80-7.70); Neutrophils % (A) 65.1 %; Platelet Count 474 X 10*3/uL (140-440); RBC 3.95 X 10*6/uL (4.40-5.60); RDW 14.5 % (11.5-14.5); WBC 11.29 X 10*3/uL (4.50-10.00)
--- NOTE | 2021-03-28 11:17 | P.CONS ---
History of Present Illness - Reason for Consult Consult date: 03/27/21 dysnea , pulmonary TB Requesting physician: Dante Judge - Chief Complaint Shortness of breath x week - History of Present Illness History of Present Illness : Patient is a 61-year male with a past medical history significant for COPD CVA TIA in this patient with the recent diagnosis of latent tuberculosis for the patient is currently taking rifampin 600 mg daily that was started on at the patient be taking medication regularly patient is presenting to the [facility] for evaluation of increasing shortness of breath that the pain has been getting worse for the last week or so the patient also have a cough which is moderate intensity but not bring up any purulent sputum no hemoptysis no nausea vomiting no choking on the food no abdominal pain or any diarrhea patient on presentation to the hospital was afebrile patient is currently on 99% on 2 L nasal cannula no O2 sat sats on room air were documented patient did have white count of 14.8 with a left shift and no lymphopenia D-dimer has been normal creatinine is normal walker PCR was negative CRP is mild elevated 5.4 patient did have a chest x-ray new bilateral peripheral multifocal increased opacity consistent with COVID-19 infection patient also have a CT angiogram of the chest, no evidence of PE suggestion of faint peripheral groundglass opacities on chest x-ray not reproduced on the CT study moderate emphysematous changes without acute pulmonary process on CT patient was admitted to hospital infectious he was consulted with concern for possible TB, patient COVID test came back negative and the patient not vaccinated for COVID-19 Review of system: CONSTITUTIONAL: Positive for weakness denies high-grade fever. EYES: No complaint. ENT: No complaint. RESPIRATORY: As per history of present illness. CARDIOVASCULAR: No complaint. GENITOURINARY: No complaint. GASTROINTESTINAL: As per history of present illness. MUSCULOSKELETAL: No complaint. INTEGUMENTARY : No complaint. PSYCHOLOGIC: No complaint. ENDOCRINE: No complaint. NEUROLOGIC: No complaint. Past medical history : Reviewed, documented below Past surgical history : Reviewed, documented below Social history: Reviewed, documented below Medications: Reviewed, as documented below EXAMINATION: Vital sigans= Reviewed and documented below GENERAL DESCRIPTION: Middle-aged male lying in bed, no distress. No tachypnea or accessory muscle of respiration use. HEENT: Shows Pallor , no scleral icterus. Oral mucous membrane is dry. NECK: Trachea central, no thyromegaly. LUNGS: Unlabored breathing. Coarse breath sounds bilaterally with occasional wheeze HEART: S1, S2, regular rate and rhythm. ABDOMEN: Soft, no tenderness , guarding or rigidity EXTREMITIES: No edema feet SKIN: No rash, no masses palpable. NEUROLOGICAL: The patient is awake, alert, oriented x3, mood and affect normal. LABS AND RADIOLOGY: Reviewed results see below Assessment :1- Patient presented to hospital with increasing shortness of breath and cough which is more likely related to underlying COPD exacerbation and possi ble tracheobronchitis clinically not behaving as pneumonia whether viral or bacterial as a CT angiogram of the chest was negative for any consolidation or groundglass opacity did shows moderate emphysema. 2patient with latent tuberculosis diagnosed in the outpatient setting for the patient is currently on rifampin Plan: 1-we will continue the patient on rifampin 600mg p.o. daily to finish his 4 months of treatment liver enzymes are normal 2-steroids and bronchodilator per pulmonary 3-obtain sputum for gram stain and culture We will follow on clinical condition and cultures to further adjust medication if needed Thank you for this consultation we will follow the patient along with you Past Medical History Past Medical History: COPD, CVA/TIA, GERD/Reflux, Osteoarthritis (OA) Additional Past Medical History / Comment(s): History of chronic diarrhea with questionable colitis, history of cardiac murmur, COPD, previous history of CVA/TIA, acid reflux, peptic ulcer disease and degenerative arthritis. History of Any Multi-Drug Resistant Organisms: None Reported Past Surgical History: Back Surgery, Hernia Repair Additional Past Surgical History / Comment(s): back sx X4, lt inguinal hernia X 3, latent Tb Past Anesthesia/Blood Transfusion Reactions: Family History of Problems w/ Anesthesia Additional Past Anesthesia/Blood Transfusion Reaction / Comm: sister has difficulty waking up from anesthesia Past Psychological History: No Psychological Hx Reported Smoking Status: Never smoker Past Alcohol Use History: None Reported Past Drug Use History: Marijuana - Past Family History Sister(s) Family Medical History: Cancer Additional Family Medical History / Comment(s): BREAST CANCER Father Family Medical History: Dementia Additional Family Medical History / Comment(s): VALVE REPLACEMENT, BACK SX HIP SX AFTER MOTOR CYCLE ACCIDENT.DEPRESSION. Mother Family Medical History: Hypertension, Osteoarthritis (OA) Additional Family Medical History / Comment(s): HIT BY A SEMI TRUCK CRUSHING LEG INJURY. Medications and Allergies Home Medications Medication Instructions Recorded Confirmed Type Ibuprofen 800 mg PO TID 08/20/16 03/27/21 History Ascorbic Acid/Multivit-Min 1,000 mg PO DAILY 03/06/18 03/27/21 History [Emergen-C 1,000 mg Packet] Atorvastatin [Lipitor] 40 mg PO DAILY 03/06/18 03/27/21 History Lisinopril [Zestril] 10 mg PO DAILY PRN 03/06/18 03/27/21 History traMADol HCL [Ultram] 50 mg PO QID PRN 03/06/18 03/27/21 History methocarbamoL [Robaxin] 500 mg PO HS 12/01/18 03/27/21 History Aspirin EC [Ecotrin Low Dose] 81 mg PO DIRECTED 03/27/21 03/27/21 History Famotidine [Pepcid] 20 mg PO BID 03/27/21 03/27/21 History Fluticasone Nasal [place] [Flonase 2 spray EA NOSTRIL DAILY 03/27/21 03/27/21 History Nasal [place]] Hyoscyamine Er 0.375mg 0.375 mg PO Q12H 03/27/21 03/27/21 History Metoprolol Tartrate [Lopressor] 25 mg PO BID 03/27/21 03/27/21 History rifAMPin [Rifampin] 600 mg PO DAILY 03/27/21 03/27/21 History Allergies Allergy/AdvReac Type Severity Reaction Status Date / Time methiolate Allergy Swelling Uncoded 03/27/21 10:35 STYROFOAM Allergy Swelling Uncoded 03/27/21 10:35 Physical Exam Vitals: Vital Signs Temp Pulse Pulse Resp BP BP Pulse Ox 03/28/21 08:00 22 03/28/21 07:50 90 03/28/21 07:38 88 03/28/21 07:37 88 03/28/21 07:27 88 03/28/21 07:00 98.0 F 95 16 123/72 91 L 03/28/21 01:24 98.1 F 92 16 133/81 97 03/28/21 01:22 20 03/27/21 23:00 80 20 135/80 99 03/27/21 16:00 79 18 119/80 99 03/27/21 15:00 76 18 119/80 99 03/27/21 14:00 77 20 115/89 99 Intake and Output 03/27/21 03/28/21 03/28/21 22:59 06:59 14:59 Intake Total 180 Balance 180 Intake: Oral 180 Other: # Voids 3 Results CBC & Chem 7: 03/28/21 05:32 03/28/21 05:32 Labs: Abnormal Lab Results - Last 24 Hours (Table) 03/27/21 03/27/21 03/28/21 Range/Units 17:18 17:18 05:32 WBC 11.29 H (4.50-10.00) X 10*3/uL RBC 3.95 L (4.40-5.60) X 10*6/uL Hgb 12.6 L (13.0-17.0) g/dL Hct 39.4 L (39.6-50.0) % MCV 99.7 H (80.0-97.0) fL Plt Count 474 H (140-440) X 10*3/uL MPV 8.7 L (9.5-12.2) fL Immature Gran # 0.06 H (0.00-0.04) X 10*3/uL Monocytes # 1.12 H (0.20-1.00) X 10*3/uL Eosinophils # 0.01 L (0.04-0.35) X 10*3/uL ESR 52 H (0-15) mm/hr Carbon Dioxide (20.0-27.5) mmol/L BUN (9.0-27.0) mg/dL BUN/Creatinine Ratio (12.00-20.00) Ratio Glucose (70-110) mg/dL C-Reactive Protein 5.4 H (<1.0) mg/dL 03/28/21 Range/Units 05:32 WBC (4.50-10.00) X 10*3/uL RBC (4.40-5.60) X 10*6/uL Hgb (13.0-17.0) g/dL Hct (39.6-50.0) % MCV (80.0-97.0) fL Plt Count (140-440) X 10*3/uL MPV (9.5-12.2) fL Immature Gran # (0.00-0.04) X 10*3/uL Monocytes # (0.20-1.00) X 10*3/uL Eosinophils # (0.04-0.35) X 10*3/uL ESR (0-15) mm/hr Carbon Dioxide 28.0 H (20.0-27.5) mmol/L BUN 7.6 L (9.0-27.0) mg/dL BUN/Creatinine Ratio 10.01 L (12.00-20.00) Ratio Glucose 111 H (70-110) mg/dL C-Reactive Protein (<1.0) mg/dL
--- NOTE | 2021-03-28 13:01 | P.PN ---
Subjective Progress Note Date: 03/28/21 This is a 61-year-old female patient came into the ED because of shortness of breath. The patient was complaining of increased dyspnea, cough and she was also concerned about possibility of a pneumothorax. Apparently the patient was diagnosed having a latent tuberculosis and currently she is receiving treatment. The exact treatment is not clear. The patient is a poor historian. She stated that she has been coughing for quite some time. Her cough was dry. The patient is an ex-tobacco smoker and the patient smokes weed almost on a daily basis. Note that the patient has had history of chronic diarrhea diagnosed having colitis. The patient was being seen in the GI services and the patient was placed on Humira. He is currently off treatment. Note that as the patient was being investigated for the from [employer]olog[employer], he was given a TB test and this was a blood test which are not to be positive. The patient was referred to infectious disease and the patient was placed on chemoprophylaxis which I'm assuming is rifampin. The patient was seen by Dr. singleton. I do not see evidence of any activ e or open TB in this patient at this point in time. The patient has not taken his COVID 19 vaccination. The patient has no exposure to COVID 19. Blood work in the emergency department showed a white cell count of 14.8 with a hemoglobin of 14 and a platelet count of 476. Normal coagulation profile. The patient had sotalol 138, BUN of 9 creatinine is 0.6 and normal LFTs. The COVID 19 testing Came back negative. The CT angiogram of the chest showed no evidence of any pulmonary embolism. There was some background COPD without any acute cardiopulmonary process. The pulmonary arteries were slightly dilated and prominence consistent with underlying possible pulmonary hypertension. no pe ricardial effusion. no pleural effusion. no areas of suspicious consolidation or groundglass infiltrates. the patient is currently on duoneb nebulized treatment [id number] and symbicort as maintenance and iv solu medrol 60 mg every 6 hours. The patient is seen today 08/26/2021 in follow-up in the regular medical floor. He is currently sitting up in bed. Awake and alert in no acute distress. Her today compared to yesterday. Continues to maintain good O2 saturations in the 90s on room air. White count 11.2. Hemoglobin 12.6. Platelets 474. Sodium 138. Potassium 4.5. Creatinine 0.8. Procalcitonin 0.06. He remains on DuoNeb inhalations, Pulmicort and Perforomist inhalations, IV Solu-Medrol. Heparin for DVT prophylaxis. Objective - Vital Signs Vital signs: Vital Signs Temp 98.0 F 03/28/21 07:00 Pulse 86 03/28/21 12:09 Resp 22 03/28/21 08:00 BP 123/72 03/28/21 07:00 Pulse Ox 91 L 03/28/21 07:00 Intake & Output 03/27/21 03/28/21 03/28/21 18:59 06:59 18:59 Intake Total 180 Balance 180 Weight 91.172 kg Intake: Oral 180 Other: # Voids 3 - Exam GENERAL EXAM: Alert, pleasant 61 year old gentleman, on 2 L nasal cannula, comfortable in no apparent distress. HEAD: Normocephalic. EYES: Normal reaction of pupils, equal size. NOSE: Clear with pink turbinates. THROAT: No erythema or exudates. NECK: No masses, no JVD. CHEST: No chest wall deformity. LUNGS: Equal air entry with end expiratory wheeze, few scattered rhonchi. CVS: S1 and S2 normal with no audible murmur, regular rhythm. ABDOMEN: No hepatosplenomegaly, normal bowel sounds, no guarding or rigidity. SPINE: No scoliosis or deformity SKIN: No rashes CENTRAL NERVOUS SYSTEM: No focal deficits, tone is normal in all 4 extremities. EXTREMITIES: There is no peripheral edema. No clubbing, no cyanosis. Peripheral pulses are intact. - Labs CBC & Chem 7: 03/28/21 05:32 03/28/21 05:32 Labs: Abnormal Lab Results - Last 24 Hours (Table) 03/27/21 03/27/21 03/28/21 Range/Units 17:18 17:18 05:32 WBC 11.29 H (4.50-10.00) X 10*3/uL RBC 3.95 L (4.40-5.60) X 10*6/uL Hgb 12.6 L (13.0-17.0) g/dL Hct 39.4 L (39.6-50.0) % MCV 99.7 H (80.0-97.0) fL Plt Count 474 H (140-440) X 10*3/uL MPV 8.7 L (9.5-12.2) fL Immature Gran # 0.06 H (0.00-0.04) X 10*3/uL Monocytes # 1.12 H (0.20-1.00) X 10*3/uL Eosinophils # 0.01 L (0.04-0.35) X 10*3/uL ESR 52 H (0-15) mm/hr Carbon Dioxide (20.0-27.5) mmol/L BUN (9.0-27.0) mg/dL BUN/Creatinine Ratio (12.00-20.00) Ratio Glucose (70-110) mg/dL C-Reactive Protein 5.4 H (<1.0) mg/dL 03/28/21 Range/Units 05:32 WBC (4.50-10.00) X 10*3/uL RBC (4.40-5.60) X 10*6/uL Hgb (13.0-17.0) g/dL Hct (39.6-50.0) % MCV (80.0-97.0) fL Plt Count (140-440) X 10*3/uL MPV (9.5-12.2) fL Immature Gran # (0.00-0.04) X 10*3/uL Monocytes # (0.20-1.00) X 10*3/uL Eosinophils # (0.04-0.35) X 10*3/uL ESR (0-15) mm/hr Carbon Dioxide 28.0 H (20.0-27.5) mmol/L BUN 7.6 L (9.0-27.0) mg/dL BUN/Creatinine Ratio 10.01 L (12.00-20.00) Ratio Glucose 111 H (70-110) mg/dL C-Reactive Protein (<1.0) mg/dL Assessment and Plan Assessment: 1 acute COPD exacerbation with secondary shortness of breath. CT of the chest showed no evidence of any already consolidation, groundglass changes or any pulmonary embolism. No evidence of pneumonia. The patient diffuse emphysematous changes bilaterally consistent with COPD. the patient has not been vaccinated for COVID 19. The patient has no exposure to COVID 19 at this point in time. COVID 19 PCR came back negative. He is on home 02 and he has been using Proair and Nebulizer 2 latent TB likely. No evidence of any active tuberculosis at this point in time. The patient had exposure to grandfather who of TB the patient was evaluated by infectious disease and the patient was placed on chemoprophylaxis. Remains on rifampin. 3 hypertension 4 hyperlipidemia 5 osteoarthritis 6 chronic diarrhea secondary to colitis, possible Ulcerative colitis , maintained on prednisone 20 mg BID for the past 2 weeks as part of burst taper 7 tobacco smoking 8 marijuana smoking 9 chronic back pain Plan: The patient was seen and evaluated Currently stable and on 2 L nasal cannula Not quite back to his baseline Continue IV Solu-Medrol, bronchodilators Continue empiric antibiotics We will continue to follow I, the cosigning physician, performed a history & physical examination of the patient. Lungs sounds with end expiratory wheeze, few scattered rhonchi. Maintaining good O2 saturations in the 90s on 2 L/m per nasal cannula. I discussed the assessment and plan of care with my nurse practitioner, Lakia Jimenez. I attest to the above note as dictated by her.
[2021-03-28] MEDS: traMADol 50 MG TAB PO PRN ×2 (13:32→20:07)
--- NOTE | 2021-03-28 14:45 | PN ---
PROGRESS NOTE DATE OF SERVICE: 03/28/2021 This 61-year-old gentleman who was admitted with shortness of breath and possible COPD, acute exacerbation, is also being worked up for the possibility of latent TB. The patient is on bronchodilators. C-reactive protein is 5.4. Infectious Disease and Pulmonary are following the patient closely. The rifampin 600 mg daily to finish 4- month course is also recommended. Past medical history reviewed. REVIEW OF SYSTEMS: CARDIOVASCULAR SYSTEM: No angina. RESPIRATION: As mentioned earlier. GI: As mentioned earlier. : No dysuria. NERVOUS SYSTEM: No numbness, weakness. CURRENT MEDICATIONS: Reviewed. They include DuoNeb, aspirin, Lipitor, Zithromax, Pulmicort, Pepcid, Zestril, Solu-Medrol. Doses are reviewed. PHYSICAL EXAMINATION: Patient is alert and oriented x3. Pulse 95, blood pressure 123/72, respirations 16, temperature 98 degrees, pulse ox 91% on 2 L. HEENT: Conjunctivae normal. NECK: No jugular venous distention. CARDIOVASCULAR: S1, S2 muffled. RESPIRATION: Breath sounds diminished at the bases. Scattered rhonchi. ABDOMEN: Soft, nontender. LEGS: No edema. No swelling. NERVOUS SYSTEM: No focal deficit. LABS: WBC 11.2, hemoglobin 12.6 and ESR is 52. ASSESSMENT: 1. Shortness of breath with possible chronic obstructive pulmonary disease, acute exacerbation, with acute purulent tracheobronchitis. 2. Increased white count. 3. Latent tuberculosis. 4. Increased platelets. 5. History of tuberculosis, treated 20 years ago. 6. History of cerebrovascular accident, transient ischemic attack. 7. Rule out bronchiectasis. 8. Gastroesophageal reflux disease. 9. Degenerative joint disease. 10.Frequent diarrhea. 11.History of colitis. 12.History of transient ischemic attack. 13.History of back surgery, degenerative joint disease. 14.History of hernia repair. 15.History of nicotine dependence. RECOMMENDATIONS AND DISCUSSION: I recommend to continue current medications, continue with the monitoring, symptomatic treatment. Otherwise, continue with treatment for COPD. Closely follow with Infectious Disease and Pulmonary. Rifampin to be continued. COVID-19 is negative. Continue the rest of the medications. Guarded prognosis. Further recommendations to follow. MMODL / IJN: [id number] /
--- NOTE | 2021-03-28 15:57 | PN ---
PROGRESS NOTE DATE OF SERVICE: 03/28/2021 REASON FOR FOLLOWUP: 1. . 2. patient with tracheobronchitis. INTERVAL HISTORY: The patient is afebrile. Still complaining of off and on with coughing. denies having any chest pain. No nausea, no vomiting. No abdominal pain or diarrhea. PHYSICAL EXAMINATION: Blood pressure 153/72 with a pulse of 95, temperature . He is 99% on room air. General description is middle-aged male up in the bed in no distress. Respiratory system: Unlabored breathing. Coarse breath sounds bilaterally. Occasional wheeze. Heart S1, S2. Regular rate and rhythm. Abdomen soft, no tenderness. LABS: Hemoglobin is 12.3, white count 11.2 DIAGNOSTIC IMPRESSION AND PLAN: 1. Patient with admission to hospital with shortness of breath, more likely related to chronic obstructive pulmonary disease exacerbation with tracheobronchitis. Clinically not behaving as pneumonia. To continue with .. 2. Patient with , for which the patient is currently on oral rifampin will continue. Liver enzymes are normal. MMODL / IJN: [id number] /
[2021-03-29] MEDS: IBUPROFEN 800 MG TAB PO SCH ×2 (00:55→08:11)
[2021-03-29] MEDS: methylPREDNISolone SOD SUCCI 125 MG/2 ML VIAL IV SCH ×3 (00:55→12:15)
[2021-03-29 02:26] VITALS: TEMP 97.8
[2021-03-29] MEDS: PANTOPRAZOLE 40 MG TABLET PO SCH (08:09)
[2021-03-29] MEDS: ATORVASTATIN 40 MG TAB PO SCH (08:09)
[2021-03-29] MEDS: FAMOTIDINE 20 MG TAB PO SCH (08:09)
[2021-03-29] MEDS: METOPROLOL TARTRATE 25 MG TAB PO SCH (08:09)
[2021-03-29] MEDS: AZITHROMYCIN 500 MG TAB PO SCH (08:09)
[2021-03-29] MEDS: rifAMPin 300 MG CAP PO SCH (08:09)
[2021-03-29] MEDS: HEPARIN SODIUM,PORCINE/PF 5,000 UNIT/0.5 ML SYRINGE SQ SCH (08:10)
[2021-03-29] MEDS: traMADol 50 MG TAB PO PRN (08:15)
[2021-03-29] MEDS: FLUTICASONE 50MCG/SPRAY NASAL 16GM EA NOSTRIL SCH (08:17)
[2021-03-29 08:23] VITALS: RESP 22
[2021-03-29] MEDS: BUDESONIDE 1 MG/2 ML NEBU INHALATION SCH (08:29)
[2021-03-29] MEDS: FORMOTEROL FUMARATE 20 MCG/2 ML NEBU INHALATION SCH (08:29)
[2021-03-29] MEDS: IPRATROPIUM-ALBUTEROL 3 ML NEB INHALATION SCH ×2 (08:29→11:46)
[2021-03-29 08:41] VITALS: BP 123/70
[2021-03-29 08:43] VITALS: PULSE 88
[2021-03-29] MEDS: HYOSCYAMINE SULFATE 0.375 MG TAB.ER.12H PO SCH (12:16)
--- NOTE | 2021-03-29 14:22 | P.PN ---
Subjective Progress Note Date: 03/29/21 This is a 61-year-old female patient came into the ED because of shortness of breath. The patient was complaining of increased dyspnea, cough and she was also concerned about possibility of a pneumothorax. Apparently the patient was diagnosed having a latent tuberculosis and currently she is receiving treatment. The exact treatment is not clear. The patient is a poor historian. She stated that she has been coughing for quite some time. Her cough was dry. The patient is an ex-tobacco smoker and the patient smokes weed almost on a daily basis. Note that the patient has had history of chronic diarrhea diagnosed having colitis. The patient was being seen in the GI services and the patient was placed on Humira. He is currently off treatment. Note that as the patient was being investigated for the from [employer], he was given a TB test and this was a blood test which are not to be positive. The patient was referred to infectious disease and the patient was placed on chemoprophylaxis which I'm assuming is rifampin. The patient was seen by Dr. singleton. I do not see evidence of any activ e or open TB in this patient at this point in time. The patient has not taken his COVID 19 vaccination. The patient has no exposure to COVID 19. Blood work in the emergency department showed a white cell count of 14.8 with a hemoglobin of 14 and a platelet count of 476. Normal coagulation profile. The patient had sotalol 138, BUN of 9 creatinine is 0.6 and normal LFTs. The COVID 19 testing Came back negative. The CT angiogram of the chest showed no evidence of any pulmonary embolism. There was some background COPD without any acute cardiopulmonary process. The pulmonary arteries were slightly dilated and prominence consistent with underlying possible pulmonary hypertension. no pe ricardial effusion. no pleural effusion. no areas of suspicious consolidation or groundglass infiltrates. the patient is currently on duoneb nebulized treatment [id number] and symbicort as maintenance and iv solu medrol 60 mg every 6 hours. The patient is seen today 08/26/2021 in follow-up in the regular medical floor. He is currently sitting up in bed. Awake and alert in no acute distress. Her today compared to yesterday. Continues to maintain good O2 saturations in the 90s on room air. White count 11.2. Hemoglobin 12.6. Platelets 474. Sodium 138. Potassium 4.5. Creatinine 0.8. Procalcitonin 0.06. He remains on DuoNeb inhalations, Pulmicort and Perforomist inhalations, IV Solu-Medrol. Heparin for DVT prophylaxis. The patient is seen today 03/29/2021 in follow-up on the regular medical floor. Awake and alert in no acute distress. Feeling quite a bit better today. Feeling back to his baseline. No significant shortness of breath with conversation or with exertion.He is maintaining good O2 saturations in the upper 90s on 2 L/m per nasal cannula. He is continued on DuoNeb inhalations, Pulmicort and Pulmicort inhalations, IV solu Medrol. Antibiotics in the form of azithromycin. He is continued on his rifampin. Objective - Vital Signs Vital signs: Vital Signs Temp 97.8 F 03/29/21 07:00 Pulse 88 03/29/21 11:57 Resp 22 03/29/21 08:00 BP 123/70 03/29/21 07:00 Pulse Ox 98 03/29/21 07:00 Intake & Output 03/28/21 03/29/21 03/29/21 18:59 06:59 18:59 Intake Total 416 236 Balance 416 236 Intake: Oral 416 236 Other: # Voids 2 2 - Exam GENERAL EXAM: Alert, pleasant 61 year old gentleman, on 2 L nasal cannula, comfortable in no apparent distress. HEAD: Normocephalic. EYES: Normal reaction of pupils, equal size. NOSE: Clear with pink turbinates. THROAT: No erythema or exudates. NECK: No masses, no JVD. CHEST: No chest wall deformity. LUNGS: Equal air entry with end expiratory wheeze, few scattered rhonchi. CVS: S1 and S2 normal with no audible murmur, regular rhythm. ABDOMEN: No hepatosplenomegaly, normal bowel sounds, no guarding or rigidity. SPINE: No scoliosis or deformity SKIN: No rashes CENTRAL NERVOUS SYSTEM: No focal deficits, tone is normal in all 4 extremities. EXTREMITIES: There is no peripheral edema. No clubbing, no cyanosis. Peripheral pulses are intact. - Labs CBC & Chem 7: 03/28/21 05:32 03/28/21 05:32 Assessment and Plan Assessment: 1 acute COPD exacerbation with secondary shortness of breath. CT of the chest showed no evidence of any already consolidation, groundglass changes or any pulmonary embolism. No evidence of pneumonia. The patient diffuse emphysematous changes bilaterally consistent with COPD. the patient has not been vaccinated for COVID 19. The patient has no exposure to COVID 19 at this point in time. COVID 19 PCR came back negative. He is on home 02 and he has been using Proair and Nebulizer 2 latent TB likely. No evidence of any active tuberculosis at this point in time. The patient had exposure to grandfather who of TB the patient was evaluated by infectious disease and the patient was placed on chemoprophylaxis. Remains on rifampin. 3 hypertension 4 hyperlipidemia 5 osteoarthritis 6 chronic diarrhea secondary to colitis, possible Ulcerative colitis , maintained on prednisone 20 mg BID for the past 2 weeks as part of burst taper 7 tobacco smoking 8 marijuana smoking 9 chronic back pain Plan: The patient was seen and evaluated Cleared for discharge from the pulmonary standpoint Continue his home prednisone and pulmonary medications Follow-up in the office in 1-2 weeks' I, the cosigning physician, performed a history & physical examination of the patient. Lungs sounds with end expiratory wheeze, few scattered rhonchi. Maintaining good O2 saturations in the 90s on 2 L/m per nasal cannula. I discus sed the assessment and plan of care with my nurse practitioner, Lakia Jimenez. I attest to the above note as dictated by her.
--- NOTE | 2021-03-29 15:31 | PN ---
PROGRESS NOTE DATE OF SERVICE: 03/29/2021 REASON FOR FOLLOWUP: 1. COPD exacerbation and tracheobronchitis. 2. Latent TB. INTERVAL HISTORY: The patient was seen on rounds this morning. The patient has been afebrile. The patient is feeling much better. He is breathing comfortably. The patient denies having any chest pain or worsening cough or sputum production. No abdominal pain or diarrhea. PHYSICAL EXAMINATION: Blood pressure 123/70 with a pulse of 66, temperature 97.8. He is 98% on 2 L nasal cannula. General description is a middle-aged male lying in bed in no distress. Respiratory system: Unlabored breathing, decreased intensity of breath sounds. No wheeze. Heart S1, S2. Regular rate and rhythm. Abdomen soft, no tenderness. LABS: No new labs have been obtained today. Blood culture negative. DIAGNOSTIC IMPRESSION AND PLAN: 1. Patient admitted to hospital with shortness of breath, likely secondary to chronic obstructive pulmonary disease exacerbation and tracheobronchitis, not behaving as pneumonia. 2. Latent tuberculosis. To continue with rifampin to finish 4 months of therapy. Continue supportive care. MMODL / IJN: [id number] /
--- NOTE | 2021-03-30 15:49 | P.PN ---
Subjective Progress Note Date: 03/29/21 Final diagnosis Shortness of breath with possible chronic obstructive pulmonary disease, acute exacerbation with acute purulent tracheobronchitis Increased white count Latent tuberculosis increased platelets history of tuberculosis, treated 20 years ago history of cerebrovascular accident, TIA Rule out bronchiectasis gastroesophageal reflux disease degenerative joint disease Frequent diarrhea History of colitis History of transient ischemic attack history back surgery, degenerative joint disease History of hernia repair history of nicotine dependence Discharge disposition Patient is being discharged in a stable condition with guarded prognosis to home. Patient will continue with oral Augmentin twice daily for the next 10 days in the outpatient setting. Patient will follow-up with MICHAEL Castillo upon discharge. Patient will also follow-up with pulmonary Dr. Claudio in 1-2 weeks. Patient will continue on a prednisone taper along with oral Zithromax for the next 4 days to complete the course. Patient also instructed to continue with rifampin. Total time taken is greater than 35 minutes. Hospital course This is a 61-year-old male who was recently admitted with shortness of breath and possible COPD acute exacerbation and being closely monitored. Patient also being followed in the outpatient setting for possibility of latent TB and maintained on rifampin. Pulmonary and infectious disease following and patient is maintained on oral Zithromax and will continue for 4 days to complete the course along with a prednisone taper. Patient to continue with bronchodilators and also strongly encouraged to continue rifampin and will follow-up outpatient closely with pulmonary. Currently no reports of chest pain, worsening shortness of breath, or palpitations. Patient is afebrile. No reports of nausea or vomiting and patient is tolerating diet. Patient will be discharged to home today. Guarded prognosis. On exam vital signs are stable. Cardio S1, S2 are muffled. Respiratory system shows diminished breath sounds at the bases with some mild expiratory wheezing noted. Abdomen is soft and nontender. Nervous system shows no focal deficits. Please refer to medication reconciliation sheet for a list of medications. Objective - Vital Signs Vital signs: Vital Signs Temp 97.8 F 03/29/21 07:00 Pulse 88 03/29/21 08:50 Resp 22 03/29/21 08:00 BP 123/70 03/29/21 07:00 Pulse Ox 98 03/29/21 07:00 Intake & Output 03/28/21 03/29/21 03/29/21 18:59 06:59 18:59 Intake Total 416 236 Balance 416 236 Intake: Oral 416 236 Other: # Voids 2 2 - Labs CBC & Chem 7: 03/28/21 05:32 03/28/21 05:32
== END 2021-03-29 13:34 | disposition home or self-care (01) | DRG 192 ==
LOC: EC 09:18 → OBSVTOIN 13:20 → 6NMEDSUR 13:20
PROVIDERS: ADMIT Internal Medicine; ATTEND Internal Medicine
DX: J43.9 Emphysema, unspecified (principal); E78.5 Hyperlipidemia, unspecified; J20.9 Acute bronchitis, unspecified; Z22.7 Latent tuberculosis; Z20.822 Contact with and (suspected) exposure to COVID-19; I10 Essential (primary) hypertension; G89.29 Other chronic pain; M54.9 Dorsalgia, unspecified; K52.9 Noninfective gastroenteritis and colitis, unspecified; K21.9 Gastro-esophageal reflux disease without esophagitis; M19.90 Unspecified osteoarthritis, unspecified site; Z87.891 Personal history of nicotine dependence; Z79.899 Other long term (current) drug therapy; Z86.73 Personal history of transient ischemic attack (TIA), and cerebral infarction without residual deficits; Z86.718 Personal history of other venous thrombosis and embolism; Z87.19 Personal history of other diseases of the digestive system; Z87.11 Personal history of peptic ulcer disease; Z98.890 Other specified postprocedural states; Z88.3 Allergy status to other anti-infective agents; Z91.048 Other nonmedicinal substance allergy status; Z82.0 Family history of epilepsy and other diseases of the nervous system; Z82.49 Family history of ischemic heart disease and other diseases of the circulatory system; Z80.3 Family history of malignant neoplasm of breast; Z81.8 Family history of other mental and behavioral disorders; Z82.69 Family history of other diseases of the musculoskeletal system and connective tissue
CPT/HCPCS: 36415; 71045; 71275; 80048; 80053; 84145; 85025; 85379; 85610; 85652; 85730; 86140; 87635; 94640; 96374; 96375; 99285

== ENCOUNTER → 2021-04-20 | Outpatient (CLI) | payer BC, MEDICARE ==
[2021-04-20 16:19] LABS: ALT 22 U/L (10-49); AST 21 U/L (14-35); African American GFR (CKD) 113.3 (60.0-200.0); Albumin 3.5 g/dL (3.8-4.9); Albumin/Globulin Ratio 1.09 (1.60-3.17); Alkaline Phosphatase 61 U/L (41-126); BUN/Creat Ratio 10.63 Ratio (12.00-20.00); Bilirubin, Conjugated <0.20 mg/dL (0.20-0.40); Blood Urea Nitrogen 8.5 mg/dL (9.0-27.0); Calcium 9.3 mg/dL (8.7-10.3); Carbon Dioxide 26.5 mmol/L (20.0-27.5); Chloride 100 mmol/L (96-109); Globulin 3.2 g/dL (1.6-3.3); Glucose 102 mg/dL (70-110); Non-African American GFR(CKD) 97.8 (60.0-200.0); Potassium 4.3 mmol/L (3.5-5.5); Sodium 139 mmol/L (135-145); Total Protein 6.7 g/dL (6.2-8.2)
== END | disposition home or self-care (01) ==
LOC: LABWHC1 09:55
PROVIDERS: ATTEND Internal Medicine Infectious Disease
DX: R53.83 Other fatigue (principal); E78.00 Pure hypercholesterolemia, unspecified
CPT/HCPCS: 36415; 80048; 80076

== ENCOUNTER 2021-07-29 07:51 | Emergency (ER) | payer BC, MEDICARE ==
[2021-07-29 07:56] VITALS: TEMP 98
[2021-07-29] MEDS ORDERED: DIAZEPAM 5 MG/ML 2 ML INJ IVP STA (08:17)
[2021-07-29] MEDS ORDERED: METOCLOPRAMIDE 5 MG/ML 2 ML VIAL IVP STA (08:17)
[2021-07-29] MEDS ORDERED: MECLIZINE 25 MG TAB PO STA (08:17)
[2021-07-29] MEDS ORDERED: SCOPOLAMINE 1 MG/72 HR PATCH TRANSDERM STA (08:18)
[2021-07-29] MEDS ORDERED: SODIUM CHLORIDE 0.9% 500 ML 500 ML IV ONE (08:18)
--- NOTE | 2021-07-29 08:46 | ED ---
General Adult HPI - General Chief complaint: Dizziness Stated complaint: High BP,Dizziness,weight on chest Time Seen by Provider: 07/29/21 08:00 Source: patient, RN notes reviewed, old records reviewed Mode of arrival: wheelchair Limitations: no limitations - History of Present Illness Initial comments: This is a 61-year-old male who presents emergency Department stating he is here because he is severely dizzy. Patient states was a sudden onset of dizziness when he went to let his dog out last night and the whole room was spinning he found it difficult to stand without holding onto something. Patient states anytime he moves his head the dizziness is worse per patient states staring at something closing his eyes definitely makes the symptoms better. Patient states he was really sweaty and hot when this started yesterday. Patient denies any chest pain short of breath difficulty breathing or palpitations. Patient denies any headache. Patient denies any nausea. Patient denies abdominal pain. Patient denies any history similar. Patient denies any sudden onset of difficulty hearing or ringing in ears. - Related Data Home Medications Medication Instructions Recorded Confirmed Ibuprofen 800 mg PO TID 08/20/16 03/27/21 Ascorbic Acid/Multivit-Min 1,000 mg PO DAILY 03/06/18 03/27/21 [Emergen-C 1,000 mg Packet] Atorvastatin [Lipitor] 40 mg PO DAILY 03/06/18 03/27/21 Lisinopril [Zestril] 10 mg PO DAILY PRN 03/06/18 03/27/21 traMADol HCL [Ultram] 50 mg PO QID PRN 03/06/18 03/27/21 methocarbamoL [Robaxin] 500 mg PO HS 12/01/18 03/27/21 Aspirin EC [Ecotrin Low Dose] 81 mg PO DIRECTED 03/27/21 03/27/21 Famotidine [Pepcid] 20 mg PO BID 03/27/21 03/27/21 Fluticasone Nasal Stuart [Flonase 2 spray EA NOSTRIL DAILY 03/27/21 03/27/21 Nasal Stuart] Hyoscyamine Er 0.375mg 0.375 mg PO Q12H 03/27/21 03/27/21 Metoprolol Tartrate [Lopressor] 25 mg PO BID 03/27/21 03/27/21 rifAMPin [Rifampin] 600 mg PO DAILY 03/27/21 03/27/21 Previous Rx's Medication Instructions Recorded Azithromycin [Zithromax] 500 mg PO DAILY 4 Days #4 tab 03/29/21 Ipratropium-Albuterol Nebulize 3 ml INHALATION RT-Q4H PRN ml 03/29/21 [Duoneb 0.5 mg-3 mg/3 ml Soln] Ipratropium-Albuterol Nebulize 3 ml INHALATION RT-QID 30 Days #90 03/29/21 [Duoneb 0.5 mg-3 mg/3 ml Soln] ml predniSONE 10 mg PO DIRECTED #30 tab 03/29/21 Meclizine [Antivert] 25 mg PO TID #20 tab 07/29/21 Allergies Allergy/AdvReac Type Severity Reaction Status Date / Time methiolate Allergy Swelling Uncoded 07/29/21 07:56 STYROFOAM Allergy Swelling Uncoded 07/29/21 07:56 Review of Systems ROS Statement: Those systems with pertinent positive or pertinent negative responses have been documented in the HPI. ROS Other: All systems not noted in ROS Statement are negative. Past Medical History Past Medical History: Atrial Fibrillation, COPD, CVA/TIA, GERD/Reflux, Osteoarthritis (OA) Additional Past Medical History / Comment(s): History of chronic diarrhea with questionable colitis, history of cardiac murmur, COPD, previous history of CVA/TIA, acid reflux, peptic ulcer disease and degenerative arthritis. History of Any Multi-Drug Resistant Organisms: None Reported Past Surgical History: Back Surgery, Hernia Repair Additional Past Surgical History / Comment(s): back sx X4, lt inguinal hernia X 3, latent Tb Past Anesthesia/Blood Transfusion Reactions: Family History of Problems w/ Anesthesia Additional Past Anesthesia/Blood Transfusion Reaction / Comment(s): sister has difficulty waking up from anesthesia Past Psychological History: No Psychological Hx Reported Smoking Status: Former smoker Past Alcohol Use History: None Reported Past Drug Use History: Marijuana - Past Family History Sister(s) Family Medical History: Cancer Additional Family Medical History / Comment(s): BREAST CANCER Father Family Medical History: Dementia Additional Family Medical History / Comment(s): VALVE REPLACEMENT, BACK SX HIP SX AFTER MOTOR CYCLE ACCIDENT.DEPRESSION. Mother Family Medical History: Hypertension, Osteoarthritis (OA) Additional Family Medical History / Comment(s): HIT BY A SEMI TRUCK CRUSHING LEG INJURY. General Exam - General Exam Comments Initial Comments: GENERAL: Patient is well-developed and well-nourished. Patient is nontoxic and well- hydrated and is in mild distress. ENT: Neck is soft and supple. No significant lymphadenopathy is noted. Oropharynx is clear. Moist mucous membranes. Neck has full range of motion without eliciting any pain. EYES: The sclera were anicteric and conjunctiva were pink and moist. Extraocular movements were intact and pupils were equal round and reactive to light. Eyelids were unremarkable. PULMONARY: Unlabored respirations. Good breath sounds bilaterally. No audible rales rhonchi or wheezing was noted. CARDIOVASCULAR: There is a regular rate and rhythm without any murmurs gallops or rubs. ABDOMEN: Soft and nontender with normal bowel sounds. SKIN: Skin is clear with no lesions or rashes and otherwise unremarkable. NEUROLOGIC: Patient is alert and oriented x3. Cranial nerves II through XII are grossly intact. Motor and sensory are also intact. Normal speech, volume and content. Symmetrical smile. Finger to nose testing is normal bilaterally MUSCULOSKELETAL: Normal extremities with adequate strength and full range of motion. LYMPHATICS: No significant lymphadenopathy is noted PSYCHIATRIC: Normal psychiatric evaluation. Limitations: no limitations Course Vital Signs 07/29/21 07/29/21 07:54 09:33 Temperature 98 F Pulse Rate 69 59 L Respiratory 16 18 Rate Blood Pressure 165/93 139/92 O2 Sat by Pulse 96 97 Oximetry Medical Decision Making - Medical Decision Making EKG shows sinus rhythm at 64 bpm NH interval is 136 QRS is under 12 QT interval 4:30 when QTC is 441. Patient's EKG shows no ST segment elevation or depression. CT of the brain shows no acute abnormality. Chest shows no acute abnormality. Patient received Antivert some Valium and Reglan in the emergency department felt considerably better. Patient also got a scopolamine patch emergency department. Patient did mention at some point he had some chest discomfort when I went back in and spoke to about he stated it was in pain or discomfort or heaviness he stated that it was a feeling that his heart was racing and his could feel his heart beating fast. - Lab Data Result diagrams: 07/29/21 08:39 07/29/21 08:39 Lab Results 07/29/21 07/29/21 07/29/21 Range/Units 08:39 08:39 08:39 WBC 13.9 H (3.8-10.6) k/uL RBC 4.38 (4.30-5.90) m/uL Hgb 14.0 (13.0-17.5) gm/dL Hct 43.3 (39.0-53.0) % MCV 98.8 (80.0-100.0) fL MCH 32.0 (25.0-35.0) pg MCHC 32.3 (31.0-37.0) g/dL RDW 14.8 (11.5-15.5) % Plt Count 444 (150-450) k/uL MPV 6.4 Neutrophils % 75 % Lymphocytes % 17 % Monocytes % 6 % Eosinophils % 0 % Basophils % 0 % Neutrophils # 10.5 H (1.3-7.7) k/uL Lymphocytes # 2.4 (1.0-4.8) k/uL Monocytes # 0.8 (0-1.0) k/uL Eosinophils # 0.0 (0-0.7) k/uL Basophils # 0.0 (0-0.2) k/uL PT 9.7 (9.0-12.0) sec INR 0.9 (<1.2) APTT 22.6 (22.0-30.0) sec Sodium 137 (137-145) mmol/L Potassium 3.7 (3.5-5.1) mmol/L Chloride 105 (98-107) mmol/L Carbon Dioxide 27 (22-30) mmol/L Anion Gap 5 mmol/L BUN 19 (9-20) mg/dL Creatinine 0.70 (0.66-1.25) mg/dL Est GFR (CKD-EPI)AfAm >90 (>60 ml/min/1.73 sqM) Est GFR (CKD-EPI)NonAf >90 (>60 ml/min/1.73 sqM) Glucose 98 (74-99) mg/dL Calcium 8.9 (8.4-10.2) mg/dL Magnesium 2.2 (1.6-2.3) mg/dL Total Bilirubin 0.4 (0.2-1.3) mg/dL AST 23 (17-59) U/L ALT 28 (4-49) U/L Alkaline Phosphatase 84 (38-126) U/L Troponin I (0.000-0.034) ng/mL Total Protein 6.4 (6.3-8.2) g/dL Albumin 3.7 (3.5-5.0) g/dL 07/29/21 Range/Units 08:39 WBC (3.8-10.6) k/uL RBC (4.30-5.90) m/uL Hgb (13.0-17.5) gm/dL Hct (39.0-53.0) % MCV (80.0-100.0) fL MCH (25.0-35.0) pg MCHC (31.0-37.0) g/dL RDW (11.5-15.5) % Plt Count (150-450) k/uL MPV Neutrophils % % Lymphocytes % % Monocytes % % Eosinophils % % Basophils % % Neutrophils # (1.3-7.7) k/uL Lymphocytes # (1.0-4.8) k/uL Monocytes # (0-1.0) k/uL Eosinophils # (0-0.7) k/uL Basophils # (0-0.2) k/uL PT (9.0-12.0) sec INR (<1.2) APTT (22.0-30.0) sec Sodium (137-145) mmol/L Potassium (3.5-5.1) mmol/L Chloride (98-107) mmol/L Carbon Dioxide (22-30) mmol/L Anion Gap mmol/L BUN (9-20) mg/dL Creatinine (0.66-1.25) mg/dL Est GFR (CKD-EPI)AfAm (>60 ml/min/1.73 sqM) Est GFR (CKD-EPI)NonAf (>60 ml/min/1.73 sqM) Glucose (74-99) mg/dL Calcium (8.4-10.2) mg/dL Magnesium (1.6-2.3) mg/dL Total Bilirubin (0.2-1.3) mg/dL AST (17-59) U/L ALT (4-49) U/L Alkaline Phosphatase (38-126) U/L Troponin I <0.012 (0.000-0.034) ng/mL Total Protein (6.3-8.2) g/dL Albumin (3.5-5.0) g/dL Disposition Clinical Impression: Vertigo Disposition: HOME SELF-CARE Condition: Good Instructions (If sedation given, give patient instructions): Vertigo (ED) Prescriptions: Meclizine [Antivert] 25 mg PO TID #20 tab Is patient prescribed a controlled substance at d/c from ED?: No Referrals: Skip Stratton DO [Primary Care Provider] - 1-2 days Time of Disposition: 09:40
[2021-07-29 09:00] LABS: ALT 28 U/L (4-49); AST 23 U/L (17-59); African American GFR (CKD) >90 (>60 ml/min/1.73 sqM); Albumin 3.7 g/dL (3.5-5.0); Alkaline Phosphatase 84 U/L (38-126); Anion Gap 5 mmol/L; Blood Urea Nitrogen 19 mg/dL (9-20); Calcium 8.9 mg/dL (8.4-10.2); Carbon Dioxide 27 mmol/L (22-30); Chloride 105 mmol/L (98-107); Glucose 98 mg/dL (74-99); Magnesium 2.2 mg/dL (1.6-2.3); Non-African American GFR(CKD) >90 (>60 ml/min/1.73 sqM); Potassium 3.7 mmol/L (3.5-5.1); Sodium 137 mmol/L (137-145); Total Bilirubin 0.4 mg/dL (0.2-1.3); Total Protein 6.4 g/dL (6.3-8.2)
[2021-07-29 09:02] LABS: Basophils % (A) 0 %; Eosinophils % (A) 0 %; HCT 43.3 % (39.0-53.0); Lymphocytes # (A) 2.4 k/uL (1.0-4.8); Lymphocytes % (A) 17 %; MCHC 32.3 g/dL (31.0-37.0); MCV 98.8 fL (80.0-100.0); Mean Platelet Volume 6.4; Monocytes # (A) 0.8 k/uL (0-1.0); Monocytes % (A) 6 %; Neutrophils # (A) 10.5 k/uL (1.3-7.7); Neutrophils % (A) 75 %; Platelet Count 444 k/uL (150-450); RBC 4.38 m/uL (4.30-5.90); RDW 14.8 % (11.5-15.5); WBC 13.9 k/uL (3.8-10.6)
[2021-07-29 09:05] LABS: INR 0.9 (<1.2); Partial Thromboplastin Time 22.6 sec (22.0-30.0); Prothrombin Time 9.7 sec (9.0-12.0)
[2021-07-29 09:35] VITALS: RESP 18
--- NOTE | 2021-07-29 09:39 | CT ---
EXAMINATION TYPE: CT brain wo con DATE OF EXAM: 07/29/2021 COMPARISON: 02/23/2020 HISTORY: 61-year-old male with ataxia, Dizziness TECHNIQUE: Examination was done in axial plane without intravenous contrast. Coronal and sagittal r econstructions performed. CT DLP: 1107.4 mGycm Automated exposure control for dose reduction was used. FINDINGS: There is no evidence of acute intracranial hemorrhage, acute ischemic changes, mass, mass-effect, or extra-axial fluid collection. There is no effacement of cerebral sulci or basal subarachnoid cister ns. There is no hydrocephalus. There is no midline shift. Oropeza-white matter distinction is preserv ed. Trace mucosal thickening ethmoid air cells. Mastoid air cells well pneumatized. Orbits and globes are intact IMPRESSION: No acute intracranial abnormality seen.
--- NOTE | 2021-07-29 09:40 | XR ---
EXAMINATION TYPE: XR chest 2V DATE OF EXAM: 07/29/2021 COMPARISON: 03/27/2021 HISTORY: 61-year-old male with chest pain and dizziness TECHNIQUE: PA and lateral views FINDINGS: Heart normal size. Aorta and pulmonary vasculature are within normal limits. Hyperinflation. Streaky atelectasis lower lungs. No consolidation or pleural effusion. IMPRESSION: COPD. No acute cardiopulmonary process.
[2021-07-29 10:25] VITALS: BP 147/99; PULSE 51
== END 2021-07-29 10:28 | disposition home or self-care (01) ==
LOC: EC 07:51
DX: R42 Dizziness and giddiness (principal); J44.9 Chronic obstructive pulmonary disease, unspecified; K21.9 Gastro-esophageal reflux disease without esophagitis; I48.91 Unspecified atrial fibrillation; Z91.09 Other allergy status, other than to drugs and biological substances; Z88.8 Allergy status to other drugs, medicaments and biological substances; Z79.899 Other long term (current) drug therapy; Z79.82 Long term (current) use of aspirin; Z87.891 Personal history of nicotine dependence
CPT/HCPCS: 36415; 93005; 80053; 83735; 84484; 85025; 85610; 85730; 71046; 70450; 99284; 96374; 96375; J2765; J3360

== ENCOUNTER → 2022-09-10 | Outpatient (CLI) | payer BC, MEDICARE ==
--- NOTE | 2022-09-10 13:57 | BD ---
EXAMINATION TYPE: Axial Bone Density DATE OF EXAM: 09/10/2022 CLINICAL HISTORY: 62 years old Male. ICD-10 CODE: Z79.52 CURRENT USE OF STEROID MEDS Height: 6 ft 4 in Weight: 204 FRAX RISK QUESTIONS: Alcohol (3 or more units per day): no Family History (Parent hip fracture): no Glucocorticoids (More than 3mos): yes (Ex: prednisone, prednisolone, methylprednisolone, dexamethasone, and hydrocortisone). History of Fracture in Adulthood: no Secondary Osteoporosis: 1. Type 1 Diabetes: no 2. Hyperthyroidism: no 4. Malnutrition: ulcerative colitis 5. Chronic liver disease: no Rheumatoid Arthritis: no Current Tobacco Use: marijuana RISK FACTORS HISTORY OF: Surgery to Spine/Hip(right/left)/Wrist (right/left): lumbar surg multiple 4 When: 2002 Family History of Osteoporosis: no Active: yes Diet low in dairy products/other sources of calcium: no Lost more than 2 inches in height since high school: no Frequent falls: no Poor Health: good Hyperparathyroidism: no Adrenal Insufficiency: no MEDICATIONS: Prednisone or other steroids: yes currently on How Lon-4 years Additional Medications: prednisone, lisinopril, cholesterol meds, omeprazole, inhaler for copd, trama dol, Additional History: EXAM MEASUREMENTS: Bone mineral density about the R hip (g/cm2): 0.899 Bone mineral density about the L hip (g/cm2): 0.926 T Score values are as follows: -----R Neck: -1.0 -----L Neck: -0.8 -----R Total: -0.3 -----L Total: -0.2 Z Score values are as follows: -----R Neck: -0.7 -----L Neck: -0.5 -----R Total: -0.8 -----L Total: -0.6 baseline Bone mineral density about the L Wrist (g/cm2): 0.841 T Score values are as follows: -----Dist. R+U: 1.6 -----Prox. R+U: 0.6 -----Radius total: 1.3 Z Score values are as follows: -----Dist. R+U: 2.0 -----Prox. R+U: 1.0 -----Radius total: 1.7 baseline FRAX%s: The graph provided illustrates a 5.8 % chance for a major osteoporotic fx and a 0.6 % chance for the hips probability for fx in 10 years time. IMPRESSION: Normal (Values between +1 and -1 indicate normal bone mass). Consider repeating this study in 5 year s or sooner if there is some new clinical indication. NOTE: T-SCORE=SD OF THE YOUNG ADULT MEAN.
== END | disposition home or self-care (01) ==
LOC: RADBDWWP 10:46
PROVIDERS: ATTEND Physician Assistant
DX: E46 Unspecified protein-calorie malnutrition (principal); K51.90 Ulcerative colitis, unspecified, without complications; Z79.52 Long term (current) use of systemic steroids
CPT/HCPCS: 77080

== ENCOUNTER → 2022-09-10 | Outpatient (CLI) | payer BC, MEDICARE ==
[2022-09-10 20:15] LABS: ALT 15 U/L (10-49); AST 18 U/L (14-35); Albumin 4.4 d/dL (3.8-4.9); Albumin/Globulin Ratio 1.52 Ratio (1.60-3.17); Alkaline Phosphatase 92 U/L (41-126); BUN/Creat Ratio 17.73 Ratio (12.00-20.00); Blood Urea Nitrogen 19.5 mg/dL (9.0-27.0); Calcium 10.1 mg/dL (8.7-10.3); Carbon Dioxide 27.5 mmol/L (21.6-31.8); Chloride 102 mmol/L (96-109); Globulin 2.9 d/dL (1.6-3.3); Glucose 90 mg/dL (70-110); Potassium 5.1 mmol/L (3.5-5.5); Sodium 140 mmol/L (135-145); Total Bilirubin 0.2 mg/dL (0.3-1.2); Total Protein 7.3 d/dL (6.2-8.2)
[2022-09-10 22:04] LABS: Basophils # (A) 0.09 X 10*3/uL (0.00-0.10); Basophils % (A) 0.6 %; Eosinophils # (A) 0.14 X 10*3/uL (0.04-0.35); Eosinophils % (A) 0.9 %; HCT 46.8 % (39.6-50.0); HGB 14.3 d/dL (12.0-15.0); Lymphocytes # (A) 2.55 X 10*3/uL (0.90-5.00); Lymphocytes % (A) 17.2 %; MCH 31.6 pg (27.0-32.0); MCHC 30.6 d/dL (32.0-37.0); MCV 103.3 FL (80.0-97.0); Monocytes # (A) 1.11 X 10*3/uL (0.20-1.00); Monocytes % (A) 7.5 %; NRBC Per 100 WBC 0 X 10*3/uL (0.00-0.01); Neutrophils # (A) 10.92 X 10*3/uL (1.80-7.70); Neutrophils % (A) 73.5 %; Platelet Count 507 X 10*3/uL (140-440); RBC 4.53 X 10*6/uL (4.40-5.60); RDW 12.3 % (11.5-14.5); WBC 14.86 X 10*3/uL (4.50-10.00)
[2022-09-10 23:32] LABS: Erythrocyte Sedimentation Rate 20 mm/Hr (0-20)
== END | disposition home or self-care (01) ==
LOC: LABWHC1 10:43
PROVIDERS: ATTEND Physician Assistant
DX: K51.311 Ulcerative (chronic) rectosigmoiditis with rectal bleeding (principal); R19.7 Diarrhea, unspecified
CPT/HCPCS: 36415; 80053; 85025; 85652

== ENCOUNTER → 2023-08-21 | Outpatient (CLI) | payer BC, MEDICARE ==
--- NOTE | 2023-08-21 15:05 | XR ---
EXAMINATION TYPE: XR chest 2V, XR ribs 4 views LT DATE OF EXAM: 08/21/2023 COMPARISON: 07/29/2021 HISTORY: 63-year-old male [id number] OTHER CHEST PAIN. Complaining of left lateral lower rib pain after fa ll onto 5 gallon bucket 3 weeks ago. FINDINGS: Chest: The cardiomediastinal silhouette, aorta, and pulmonary vasculature are within normal limits. Hyperinf lation. Otherwise, lungs and pleural spaces are clear. Left RIBS: No displaced left rib fracture is seen. IMPRESSION: COPD. No acute cardiopulmonary process. No displaced left rib fracture seen.
== END | disposition home or self-care (01) ==
LOC: RADXRYALE 13:41
PROVIDERS: ATTEND Physician Assistant Medical
DX: J44.9 Chronic obstructive pulmonary disease, unspecified (principal); R07.89 Other chest pain
CPT/HCPCS: 71046

== ENCOUNTER 2024-09-25 14:10 | Emergency (ER) | payer BC, MEDICARE ==
--- NOTE | 2024-09-25 14:34 | ED ---
Recheck HPI - General Chief Complaint: Recheck/Abnormal Lab/Rx Stated Complaint: lumps BL sides of neck Time Seen by Provider: 09/25/24 14:24 Source: patient, RN notes reviewed Mode of arrival: ambulatory Limitations: no limitations - History of Present Illness Initial Comments: This is a 64-year-old male who presents to the emergency department for swelling to the sides of his neck. States that he first noticed it this morning. The area is not painful. States that he had a headache yesterday which has since improved. Denies any coughing, congestion, chest pain, or shortness of breath. Denies any history of similar problems in the past. He had initially gone to urgent care and they were concerned that he had a buildup of air and were worrie d about a spontaneous pneumothorax and advised he come here for evaluation. - Related Data Home Medications Medication Instructions Recorded Confirmed Ibuprofen 800 mg PO TID 08/20/16 03/27/21 Ascorbic Acid/Multivit-Min 1,000 mg PO DAILY 03/06/18 03/27/21 [Emergen-C 1,000 mg Packet] Atorvastatin [Lipitor] 40 mg PO DAILY 03/06/18 03/27/21 lisinopriL [Zestril] 10 mg PO DAILY PRN 03/06/18 03/27/21 traMADol HCL [Ultram] 50 mg PO QID PRN 03/06/18 03/27/21 methocarbamoL [Robaxin] 500 mg PO HS 12/01/18 03/27/21 Aspirin EC [Ecotrin Low Dose] 81 mg PO DIRECTED 03/27/21 03/27/21 Famotidine [Pepcid] 20 mg PO BID 03/27/21 03/27/21 Fluticasone Nasal [place] [Flonase 2 spray EA NOSTRIL DAILY 03/27/21 03/27/21 Nasal [place]] Hyoscyamine Er 0.375mg 0.375 mg PO Q12H 03/27/21 03/27/21 Metoprolol Tartrate [Lopressor] 25 mg PO BID 03/27/21 03/27/21 rifAMPin [Rifampin] 600 mg PO DAILY 03/27/21 03/27/21 Previous Rx's Medication Instructions Recorded Azithromycin [Zithromax] 500 mg PO DAILY 4 Days #4 tab 01/13/22 Ipratropium-Albuterol Nebulize 3 ml INHALATION RT-Q4H PRN ml 03/29/21 [Duoneb 0.5 mg-3 mg/3 ml Soln] Ipratropium-Albuterol Nebulize 3 ml INHALATION RT-QID 30 Days #90 03/29/21 [Duoneb 0.5 mg-3 mg/3 ml Soln] ml predniSONE 10 mg PO DIRECTED #30 tab 03/29/21 Meclizine [Antivert] 25 mg PO TID #20 tab 07/29/21 Allergies Allergy/AdvReac Type Severity Reaction Status Date / Time methiolate Allergy Swelling Uncoded 09/25/24 14:16 STYROFOAM Allergy Swelling Uncoded 09/25/24 14:16 Review of Systems ROS Statement: Those systems with pertinent positive or pertinent negative responses have been documented in the HPI. ROS Other: All systems not noted in ROS Statement are negative. Past Medical History Past Medical History: Atrial Fibrillation, COPD, CVA/TIA, GERD/Reflux, Osteoarthritis (OA) Additional Past Medical History / Comment(s): History of chronic diarrhea with questionable colitis, history of cardiac murmur, COPD, previous history of CVA/TIA, acid reflux, peptic ulcer disease and degenerative arthritis. History of Any Multi-Drug Resistant Organisms: None Reported Past Surgical History: Back Surgery, Hernia Repair Additional Past Surgical History / Comment(s): back sx X4, lt inguinal hernia X 3, latent Tb Past Anesthesia/Blood Transfusion Reactions: Family History of Problems w/ Anesthesia Additional Past Anesthesia/Blood Transfusion Reaction / Comment(s): sister has difficulty waking up from anesthesia Past Psychological History: No Psychological Hx Reported Smoking Status: Former smoker Past Alcohol Use History: None Reported Past Drug Use History: Marijuana - Past Family History Sister(s) Family Medical History: Cancer Additional Family Medical History / Comment(s): BREAST CANCER Father Family Medical History: Dementia Additional Family Medical History / Comment(s): VALVE REPLACEMENT, BACK SX HIP SX AFTER MOTOR CYCLE ACCIDENT.DEPRESSION. Mother Family Medical History: Hypertension, Osteoarthritis (OA) Additional Family Medical History / Comment(s): HIT BY A SEMI TRUCK CRUSHING LEG INJURY. General Exam Limitations: no limitations General appearance: alert, in no apparent distress Head exam: Present: atraumatic, normocephalic, normal inspection Neck exam: Present: other (Bilateral supraclavicular swelling. No tenderness. No overlying skin changes.) Respiratory exam: Present: normal lung sounds bilaterally. Absent: respiratory distress, wheezes, rales, rhonchi, stridor Cardiovascular Exam: Present: regular rate, normal rhythm Neurological exam: Present: alert, oriented X3, CN II-XII intact Psychiatric exam: Present: normal affect, normal mood Skin exam: Present: warm, dry Course Vital Signs 09/25/24 09/25/24 09/25/24 14:14 15:30 16:22 Temperature 97.8 F Pulse Rate 61 52 L 59 L Respiratory 18 18 17 Rate Blood Pressure 163/91 141/88 150/89 O2 Sat by Pulse 97 96 96 Oximetry 09/25/24 09/25/24 17:15 18:18 Temperature 97.9 F Pulse Rate 63 57 L Respiratory 17 18 Rate Blood Pressure 150/102 173/102 O2 Sat by Pulse 99 94 L Oximetry Medical Decision Making - Medical Decision Making This is a 64-year-old male who presents to the emergency department for bilateral supraclavicular swelling. Was pt. sent in by a medical professional or institution? @ -Urgent care Did you speak to anyone other than the patient for history? @ -No Did you review nursing and triage notes? @ -Yes, and I agree, it is accurate with regards to the patient's symptoms. Were old charts reviewed? @ -No Differential Diagnosis? @ -Infection, malignancy, injury, lymphadenopathy, this is not meant to be an all-inclusive list. EKG interpreted by me (3pts min.)? @ -Not obtained X-rays interpreted by me (1pt min.)? @ -Chest x-ray obtained, my interpretation identifies no localized consolida tions or infiltrates. CT interpreted by me (1pt min.)? @ -CT scan of the neck and soft tissue chest obtained. My interpretation identifies no masses. U/S interpreted by me (1pt. min.)? @ -Not obtained What testing was considered but not performed? (CT, X-rays, U/S, labs)? Why? @ -None What meds were considered but not given? Why? @ -None Did you discuss the management of the patient with other professionals? @ -No Did you reconcile home meds? @ -No Was smoking cessation discussed for >3mins.? @ -No Was critical care preformed (if so, how long)? @ -No Were there social determinants of health that impacted care today? How? (Homelessness, low income, unemployed, alcoholism, drug addiction, transportation, low edu. Level, literacy, decrease access to med. care, intermediate, rehab)? @ -No Was there de-escalation of care discussed even if they declined? (Discuss DNR or withdrawal of care, Hospice)? @ -No What co-morbidities impacted this encounter? (DM, HTN, Smoking, COPD, CAD, Cancer, CVA, Hep., AIDS, mental health diagnosis, sleep apnea, morbid obesity)? @ -None Was patient admitted / discharged? @ -Discharged. Lab work unremarkable. Chest x-ray reveals no acute process. CT scan of the soft tissue neck and chest obtained demonstrating increased size of the bilateral supraclavicular and dorsal cervical fat pads. No solid mass identified. They advised possibility of Su syndrome versus obesity versus medication versus other causes. Findings reviewed with the patient. Advised he follow-up with his PCP for reevaluation and discussion of further testing if indicated. Patient discharged home in stable condition. Case discussed with ED attending Dr. Judge. Return precautions reviewed in depth, the patient is instructed to return to the emergency department with any new, worsening, or concerning symptoms. Patient verbalized understanding. Undiagnosed new problem with uncertain prognosis? @ -None Drug Therapy requiring intensive monitoring for toxicity (Heparin, Nitro, Insulin, Cardizem)? @ -None Were any procedures done? @ -None Diagnosis/symptom? @ -Bilateral supraclavicular swelling Acute, or Chronic, or Acute on Chronic? @ -Acute Uncomplicated (without systemic symptoms) or Complicated (systemic symptoms)? @ -Uncomplicated Side effects of treatment? @ -None Exacerbation, Progression, or Severe Exacerbation] @ -Not applicable Poses a threat to life or bodily function? @ -No - Lab Data Result diagrams: 09/25/24 15:00 09/25/24 15:00 Lab Results 09/25/24 09/25/24 09/25/24 Range/Units 15:00 15:00 15:00 WBC 8.71 (4.50-10.00) 10*3/uL RBC 3.88 L (4.40-5.60) 10*6/uL Hgb 13.8 (13.0-17.0) g/dL Hct 39.8 (39.6-50.0) % MCV 102.6 H (80.0-97.0) fL MCH 35.6 H (27.0-32.0) pg MCHC 34.7 (32.0-37.0) g/dL Plt Count 408 (140-440) 10*3/uL MPV 9.4 L (9.5-12.2) fL Immature Gran % (Auto) 0.5 % Neutrophils % 74.9 % Lymphocytes % 14.8 % Monocytes % 9.3 % Eosinophils % 0.0 % Basophils % 0.5 % Immature Gran # 0.04 (0.00-0.04) 10*3/uL Neutrophils # 6.53 (1.80-7.70) 10*3/uL Lymphocytes # 1.29 (0.90-5.00) 10*3/uL Monocytes # 0.81 (0.20-1.00) 10*3/uL Eosinophils # 0.00 L (0.04-0.35) 10*3/uL Basophils # 0.04 (0.00-0.10) 10*3/uL Sodium 141 (137-145) mmol/L Potassium 4.5 (3.5-5.1) mmol/L Chloride 104 (98-107) mmol/L Carbon Dioxide 26 (22-30) mmol/L Anion Gap 11 mmol/L BUN 21 H (9-20) mg/dL Creatinine 0.80 (0.66-1.25) mg/dL Est GFR (CKD-EPI)AfAm >90 (>60 ml/min/1.73 sqM) Est GFR (CKD-EPI)NonAf >90 (>60 ml/min/1.73 sqM) Glucose 90 (74-99) mg/dL Plasma Lactic Acid [place] 1.0 (0.7-2.0) mmol/L Calcium 10.2 (8.4-10.2) mg/dL Total Bilirubin 0.5 (0.2-1.3) mg/dL AST 30 (17-59) U/L ALT 23 (4-49) U/L Alkaline Phosphatase 69 (38-126) U/L C-Reactive Protein <0.5 (<1.0) mg/dL Total Protein 7.1 (6.3-8.2) g/dL Albumin 4.7 (3.5-5.0) g/dL Influenza Type A (PCR) (Not Detectd) Influenza Type B (PCR) (Not Detectd) RSV (PCR) (Not Detectd) SARS-CoV-2 (PCR) (Not Detectd) Group A Strep (PCR) (Not Detectd) 09/25/24 09/25/24 Range/Units 15:00 15:00 WBC (4.50-10.00) 10*3/uL RBC (4.40-5.60) 10*6/uL Hgb (13.0-17.0) g/dL Hct (39.6-50.0) % MCV (80.0-97.0) fL MCH (27.0-32.0) pg MCHC (32.0-37.0) g/dL Plt Count (140-440) 10*3/uL MPV (9.5-12.2) fL Immature Gran % (Auto) % Neutrophils % % Lymphocytes % % Monocytes % % Eosinophils % % Basophils % % Immature Gran # (0.00-0.04) 10*3/uL Neutrophils # (1.80-7.70) 10*3/uL Lymphocytes # (0.90-5.00) 10*3/uL Monocytes # (0.20-1.00) 10*3/uL Eosinophils # (0.04-0.35) 10*3/uL Basophils # (0.00-0.10) 10*3/uL Sodium (137-145) mmol/L Potassium (3.5-5.1) mmol/L Chloride (98-107) mmol/L Carbon Dioxide (22-30) mmol/L Anion Gap mmol/L BUN (9-20) mg/dL Creatinine (0.66-1.25) mg/dL Est GFR (CKD-EPI)AfAm (>60 ml/min/1.73 sqM) Est GFR (CKD-EPI)NonAf (>60 ml/min/1.73 sqM) Glucose (74-99) mg/dL Plasma Lactic Acid [place] (0.7-2.0) mmol/L Calcium (8.4-10.2) mg/dL Total Bilirubin (0.2-1.3) mg/dL AST (17-59) U/L ALT (4-49) U/L Alkaline Phosphatase (38-126) U/L C-Reactive Protein (<1.0) mg/dL Total Protein (6.3-8.2) g/dL Albumin (3.5-5.0) g/dL Influenza Type A (PCR) Not Detected (Not Detectd) Influenza Type B (PCR) Not Detected (Not Detectd) RSV (PCR) Not Detected (Not Detectd) SARS-CoV-2 (PCR) Not Detected (Not Detectd) Group A Strep (PCR) NOT DETECTED (Not Detectd) - Radiology Data Radiology results: report reviewed, image reviewed Disposition Clinical Impression: Neck swelling Disposition: HOME SELF-CARE Additional Instructions: Return to the emergency department with any new, worsening, or concerning symptoms. Follow up with your primary care provider in 1-2 days. Is patient prescribed a controlled substance at d/c from ED?: No Referrals: Skip Stratton DO [Primary Care Provider] - 1-2 days Time of Disposition: 17:41
--- NOTE | 2024-09-25 14:59 | XR ---
EXAMINATION TYPE: XR chest 2V DATE OF EXAM: 09/25/2024 2:36 PM COMPARISON: Chest radiographs from 08/21/2023 TECHNIQUE: XR chest 2V Frontal and lateral views of the chest. CLINICAL INDICATION:Male, 64 years old with history of Clavicular swelling; FINDINGS: Lungs/Pleura: There is flattening of the diaphragm with increased lucency of the lungs. No evidence o f pneumothorax, pleural effusion or focal consolidation. Pulmonary vascularity: Dilated bilateral central pulmonary arteries redemonstrated related to known p ulmonary arterial hypertension. Heart/mediastinum: Cardiomediastinal silhouette is unremarkable. Musculoskeletal: No acute osseous pathology. Bilateral AC joint arthropathy. IMPRESSION: 1. No acute cardiopulmonary disease process. 2. COPD changes. [facility], , 09/25/2024 2:57 PM
[2024-09-25 15:36] LABS: Basophils # (A) 0.04 10*3/uL (0.00-0.10); Basophils % (A) 0.5 %; Eosinophils # (A) 0.00 10*3/uL (0.04-0.35); Eosinophils % (A) 0.0 %; HCT 39.8 % (39.6-50.0); HGB 13.8 g/dL (13.0-17.0); Lymphocytes # (A) 1.29 10*3/uL (0.90-5.00); Lymphocytes % (A) 14.8 %; MCH 35.6 pg (27.0-32.0); MCHC 34.7 g/dL (32.0-37.0); MCV 102.6 fL (80.0-97.0); Monocytes # (A) 0.81 10*3/uL (0.20-1.00); Monocytes % (A) 9.3 %; Neutrophils # (A) 6.53 10*3/uL (1.80-7.70); Neutrophils % (A) 74.9 %; Platelet Count 408 10*3/uL (140-440); RBC 3.88 10*6/uL (4.40-5.60); RDW 12.5 % (11.5-14.5); WBC 8.71 10*3/uL (4.50-10.00)
[2024-09-25 16:00] LABS: ALT 23 U/L (4-49); AST 30 U/L (17-59); African American GFR (CKD) >90 (>60 ml/min/1.73 sqM); Albumin 4.7 g/dL (3.5-5.0); Alkaline Phosphatase 69 U/L (38-126); Anion Gap 11 mmol/L; Blood Urea Nitrogen 21 mg/dL (9-20); Calcium 10.2 mg/dL (8.4-10.2); Carbon Dioxide 26 mmol/L (22-30); Chloride 104 mmol/L (98-107); Glucose 90 mg/dL (74-99); Non-African American GFR(CKD) >90 (>60 ml/min/1.73 sqM); Potassium 4.5 mmol/L (3.5-5.1); Sodium 141 mmol/L (137-145); Total Protein 7.1 g/dL (6.3-8.2)
[2024-09-25 16:12] LABS: RSV Not Detected (Not Detectd)
[2024-09-25] MEDS ORDERED: RX INFO: IV CONTRAST WAS GIVEN 1 EACH MISC MISCELLANE PRN (16:32)
--- NOTE | 2024-09-25 17:32 | CT ---
EXAMINATION TYPE: CT neck chest w con CT DLP: 846.5 mGycm, Automated exposure control for dose reduction was used. DATE OF EXAM: 09/25/2024 5:20 PM COMPARISON: Chest radiograph 09/25/2024, CTA chest of 03/27/2021. CLINICAL INDICATION:Male, 64 years old with history of Bilateral supraclavicular swelling;, BILATERAL NECK SWELLING TECHNIQUE: Standard enhanced CT of the neck and chest. Axial sections with coronal and sagittal refo rmats were obtained. Contrast used:100 ml mL of Isovue 300 with IV Contrast Oral contrast used: Non- FINDINGS: BRAIN: Visualized portions are grossly unremarkable. ORBITS: Unremarkable SINUSES: Subcentimeter mucous retention cyst within the inferior left maxilla sinus. Remaining visual ized paranasal sinuses are relatively clear. SPACES OF THE NECK: Clear and symmetric. MUSCULOSKELETAL: No acute osseous pathology. Calcification of the nuchal ligament. Mild multilevel de generative disc disease of the cervical spine. LYMPH NODES: No enlarged lymph nodes identified.. VASCULAR STRUCTURES: Patent with atherosclerotic plaque of the internal carotid arteries at the bifur cation. THORACIC INLET/AIRWAY: Airway is patent. The lung apices are clear. SOFT TISSUES/THYROID: Thyroid is unremarkable. There is increased size of the bilateral supraclavicul ar fat pads. No distinct lesion is identified. Normal vessels are coursing through the fat. No solid mass identified. This is at site of palpable marker. Additionally there is increased dorsocervical fa t pad. OTHER: none. LUNGS/ PLEURA: No pleural effusion, pneumothorax, focal consolidation. Mild centrilobular emphysemato us changes. No suspicious pulmonary nodule or mass. AIRWAY: Patent and unremarkable. HEART: Size within normal limits. . No pericardial effusion. No significant coronary arterial calcifi cations. MEDIASTINUM: No evidence of adenopathy. Mildly dilated main pulmonary artery measuring up to 3.7 cm w hich can be seen with pulmonary arterial hypertension. No evidence of pulmonary embolism. VASCULATURE: No aortic aneurysm. Mild atherosclerotic calcification of the aorta and its branches. MUSCULOSKELETAL: No acute osseous abnormalities. Healed left lateral eighth rib fracture with scleros is. Mild multilevel degenerative disc disease of the thoracic spine. SOFT TISSUES/LYMPH NODES: Unremarkable. LOWER NECK: No significant findings. UPPER ABDOMEN: No significant findings. IMPRESSION 1. No CT evidence for acute process within the neck or chest. 2. Increased size of bilateral supraclavicular and dorsocervical fat pads. No solid mass identified. This can be seen with a variety of etiologies such as [place]'s syndrome versus obesity versus medica tion versus other. 3. Mild emphysematous changes. [facility], , 09/25/2024 5:29 PM
[2024-09-25 18:19] VITALS: BP 173/102; PULSE 57; RESP 18; TEMP 97.9
== END 2024-09-25 18:19 | disposition home or self-care (01) ==
LOC: EC 14:10
DX: R22.1 Localized swelling, mass and lump, neck (principal); Z87.891 Personal history of nicotine dependence; Z88.8 Allergy status to other drugs, medicaments and biological substances
CPT/HCPCS: 36415; 87651; 80053; 83605; 85025; 86140; 87636; 71046; 70491; 71260; 99284; Q9967